=== PATIENT | female | born 1955 | race Caucasian/White ===

== ENCOUNTER 2016-09-20 17:52 | Inpatient (IN) ==
[2016-09-20 19:03] LABS: Basophils # (Auto) 0.2 K/mcL (0.0-0.3); Basophils % (Auto) 0.6 % (0.0-2.0); Eosinophils # (Auto) 0.4 K/mcL (0.0-0.7); Eosinophils % (Auto) 1.5 % (0.0-7.0); Granulocytes % (Auto) 88.7 % (38.0-78.0); Lymphocytes # (Auto) 0.8 K/mcL (1.5-4.8); Lymphocytes % (Auto) 2.9 % (15.5-49.0); Mean Cell Volume 88.7 fL (80.0-100.0); Mean Corpuscular HGB Conc 31.8 g/dL (31.0-36.0); Mean Corpuscular Hemoglobin 28.2 pg (26.0-34.0); Monocytes # (Auto) 1.6 K/mcL (0.1-0.9); Monocytes % (Auto) 6.3 % (1.0-12.0); Platelet Count 364 K/mcL (140-440); RBC 4.34 M/mcL (4.00-5.20); Red Cell Distribution Width 14.1 % (11.5-14.5)
[2016-09-20 19:26] LABS: Appearance,Urine HAZY; Bacteria,Urine 0 /hpf (0); Bilirubin,Urine NEG (NEG); Color,Urine YELLOW; Glucose,Urine (UA) NEGATIVE (NEG); Leukocyte Esterase,Urine 75 /uL (NEG); Mucus,Urine FEW /hpf (0); Nitrate,Urine NEG (NEG); Protein,Urine NEG (NEG); Urine Blood NEG mg/dL (<0.03); Urine Hyaline Cast 29 /lpf (0-2); Urine RBC 1 /hpf (0-1); Urine Squamous Epithelial Cell 7 /hpf (0-4); Urine Transitional Epi Cells 2 /hpf (0-2); Urine WBC 6 /hpf (0-4); Urobilinogen,Urine NEG (NEG)
[2016-09-20 19:38] LABS: ALT/SGPT 22 U/l (0-40); Albumin 4.2 gm/dL (3.2-5.2); Albumin/Globulin Ratio 1.6 (1.0-2.3); Alkaline Phosphatase 73 U/L (39-117); Blood Urea Nitrogen 42 mg/dl (6-20)
[2016-09-20] MEDS ORDERED: FUROSEMIDE 40 MG/4 ML VIAL IV ONE (19:39)
[2016-09-20] MEDS ORDERED: INSULIN REGULAR, HUMAN 1 UNIT/0.01 ML UNIT IV ONE (19:39)
[2016-09-20] MEDS ORDERED: DEXTROSE 50% 50 ML VIAL IV ONE (19:39)
[2016-09-20] MEDS ORDERED: CALCIUM GLUCONATE 13.95 MEQ in DEXTROSE 5% IN WATER 50 ML IV ONE (19:39)
[2016-09-20] MEDS ORDERED: SODIUM POLYSTYRENE SULFONATE 15 GM/60 ML SUSPENSION PO ONE (19:40)
--- NOTE | 2016-09-20 19:49 | Emergency Department Note ---
Weakness HPI - General Chief complaint: Weakness Stated complaint: weakness Time Seen by Provider: 09/20/16 18:08 Source: EMS Mode of arrival: EMS Limitations: no limitations - History of Present Illness HPI Narrative: 61-year-old female states that she was seen at [facility] one week ago after a fall in the bathroom. Was diagnosed with 3-5 metatarsal fractures put in a splint. A contusion on the dorsum of the foot and mouth. The come to visit her at home and have advised consideration for long-term care.. Patient states she's been too weak to get up since her fracture 1 week ago. She has a contusion on the dorsum of the foot, raised hematoma - Related Data Allergies Allergy/AdvReac Type Severity Reaction Status Date / Time Penicillins Allergy Unknown Verified 09/20/16 17:59 Review of Systems All systems ED: reviewed and negative except as stated. Constitutional: Denies: fever Cardiovascular: Denies: chest pain Respiratory: Denies: cough Gastrointestinal: Denies: abdominal pain Genitourinary: Denies: urgency Musculoskeletal: Denies: back pain Integumentary: Reports: other (Meet dorsum of left foot). Denies: rash Neurological: Denies: headache Psychiatric: Denies: anxiety Endocrine: Reports: as per HPI, fatigue Past Medical History - Past Medical History Medical history: Reports: CHF, COPD Family history: Reports: CAD/[place] (father age 62 mi) - Social History smoking status: Former smoker Packyears: 100 Alcohol use: Reports: Heavy (in past 12 beer, quit 5 y ago) Drug use: Reports: none Physical Exam - General Limitations: no limitations General appearance: alert - Head Head exam: atraumatic, normocephalic - Eye Eye exam: Present: normal appearance, PERRL - ENT ENT exam: normal exam, normal oropharynx - Neck Neck exam: Present: normal inspection, full ROM - Chest Chest inspection: Present: normal inspection, symmetric chest wall rise - Respiratory Respiratory exam: Present: normal lung sounds bilaterally, respiratory distress. Absent: wheezes - Cardiovascular Cardiovascular exam: Present: regular rate, normal rhythm. Absent: bradycardia , tachycardia - Abdominal Exam Abdominal exam: Present: soft. Absent: distention, tenderness, guarding, rebound - Extremities Exam Extremities exam: Present: normal inspection, full ROM. Absent: tenderness - Back Exam Back exam: Present: normal inspection, full ROM. Absent: tenderness - Neurological Exam Neurological exam: Present: alert, oriented X3. Absent: CN II-XII intact - Psychiatric Psychiatric exam: Present: normal affect, normal mood. Absent: depressed - Skin Skin exam: Present: warm, dry, other (hematoma on dorsum of left foot) Course Vital Signs Temperature 99.0 F 09/20/16 17:54 Pulse Rate 94 H 09/20/16 17:54 Respiratory Rate 22 09/20/16 17:54 Pulse Oximetry (%) 99 09/20/16 17:54 Temperature 99.0 F 09/20/16 17:54 Pulse Rate 90 09/20/16 20:00 Respiratory Rate 22 09/20/16 17:54 Blood Pressure 94/75 09/20/16 20:00 Pulse Oximetry (%) 96 09/20/16 20:00 Weakness - MDM Narrative Medical decision making narrative: wbc is elevated at 26,000 ua only 6 wbc, bun42, cr 17 potassium is 6.4 has hematoma of r foot., blood culture drawn and lactic ordered hyperkalemic protocol ordered. vancomycin started 1 gm. a central line was put in by anesthesia patient has very poor veins. Dr Brody contacted and will consult, Dr Fontenot will admitt. - Lab Data Result diagrams: 09/20/16 18:38 09/20/16 18:38 Lab Results 09/20/16 09/20/16 09/20/16 Range/Units 18:37 18:38 18:38 WBC 26.0 H (4.5-11.0) K/mcL RBC 4.34 (4.00-5.20) M/mcL Hgb 12.3 (12.0-15.0) g/dL Hct 38.5 (36.0-48.0) % MCV 88.7 (80.0-100.0) fL MCH 28.2 (26.0-34.0) pg MCHC 31.8 (31.0-36.0) g/dL RDW 14.1 (11.5-14.5) % Plt Count 364 (140-440) K/mcL MPV 8.1 (7.4-10.4) fL Gran % 88.7 H (38.0-78.0) % Lymph % (Auto) 2.9 L (15.5-49.0) % [place] % (Auto) 6.3 (1.0-12.0) % Eos % (Auto) 1.5 (0.0-7.0) % Baso % (Auto) 0.6 (0.0-2.0) % Gran # 23.1 H (1.8-8.0) K/mcL Lymph # 0.8 L (1.5-4.8) K/mcL [place] # 1.6 H (0.1-0.9) K/mcL Eos # 0.4 (0.0-0.7) K/mcL Baso # 0.2 (0.0-0.3) K/mcL Total Counted Seg Neutrophils % (38-78) % Band Neutrophils % Lymphocytes % (15-49) % Monocytes % (Manual) (1-9) % Platelet Estimate (NORMAL) RBC Morphology (NORMAL) VBG Lactic Acid (0.5-2.2) mmol/L Sodium 126 L (133-145) mmol/L Potassium 6.4 H* (3.3-5.1) mmol/L Chloride 81 L (96-108) mmol/L Carbon Dioxide 31 H (22-30) mmol/L Anion Gap 14.0 (8-16) BUN 42 H (6-20) mg/dl Creatinine 1.7 H (0.6-1.1) mg/dl GFR Calculation 32 Glucose 92 (70-105) mg/dL Calcium 10.2 (8.6-10.4) mg/dl Total Bilirubin 0.2 (0.0-1.0) mg/dL AST 25 (0-37) U/l ALT 22 (0-40) U/l Alkaline Phosphatase 73 (39-117) U/L Total Protein 6.9 (5.9-8.4) gm/dL Albumin 4.2 (3.2-5.2) gm/dL Globulin 2.7 (2.2-3.7) gm/dL Albumin/Globulin Ratio 1.6 (1.0-2.3) Urine Color Yellow Urine Appearance Hazy Urine pH 5.0 (5.0-9.0) Ur Specific [place] 1.010 (1.000-1.035) Urine Protein Neg (NEG) mg/dL Urine Glucose (UA) Negative (NEG) mg/dL Urine Ketones Neg (NEG) mg/dL Urine Occult Blood Neg (<0.03) mg/dL Urine Nitrate Neg (NEG) Urine Bilirubin Neg (NEG) mg/dL Urine Urobilinogen Neg (NEG) mg/dL Ur Leukocyte Esterase 75 A (NEG) /uL Urine RBC 1 (0-1) /hpf Urine WBC 6 H (0-4) /hpf Ur Squamous Epith Cells 7 H (0-4) /hpf Ur Transition Epith Cell 2 (0-2) /hpf Urine Bacteria 0 (0) /hpf Hyaline Casts 29 H (0-2) /lpf Urine Mucus Few (0) /hpf Ur Culture Indicated? No 09/20/16 09/20/16 Range/Units 18:38 19:25 WBC (4.5-11.0) K/mcL RBC (4.00-5.20) M/mcL Hgb (12.0-15.0) g/dL Hct (36.0-48.0) % MCV (80.0-100.0) fL MCH (26.0-34.0) pg MCHC (31.0-36.0) g/dL RDW (11.5-14.5) % Plt Count (140-440) K/mcL MPV (7.4-10.4) fL Gran % (38.0-78.0) % Lymph % (Auto) (15.5-49.0) % [place] % (Auto) (1.0-12.0) % Eos % (Auto) (0.0-7.0) % Baso % (Auto) (0.0-2.0) % Gran # (1.8-8.0) K/mcL Lymph # (1.5-4.8) K/mcL [place] # (0.1-0.9) K/mcL Eos # (0.0-0.7) K/mcL Baso # (0.0-0.3) K/mcL Total Counted 100 Seg Neutrophils % 90 H (38-78) % Band Neutrophils % Not Reportable Lymphocytes % 1 L (15-49) % Monocytes % (Manual) 9 (1-9) % Platelet Estimate Normal (NORMAL) RBC Morphology Normal (NORMAL) VBG Lactic Acid 1.5 (0.5-2.2) mmol/L Sodium (133-145) mmol/L Potassium (3.3-5.1) mmol/L Chloride (96-108) mmol/L Carbon Dioxide (22-30) mmol/L Anion Gap (8-16) BUN (6-20) mg/dl Creatinine (0.6-1.1) mg/dl GFR Calculation Glucose (70-105) mg/dL Calcium (8.6-10.4) mg/dl Total Bilirubin (0.0-1.0) mg/dL AST (0-37) U/l ALT (0-40) U/l Alkaline Phosphatase (39-117) U/L Total Protein (5.9-8.4) gm/dL Albumin (3.2-5.2) gm/dL Globulin (2.2-3.7) gm/dL Albumin/Globulin Ratio (1.0-2.3) Urine Color Urine Appearance Urine pH (5.0-9.0) Ur Specific [place] (1.000-1.035) Urine Protein (NEG) mg/dL Urine Glucose (UA) (NEG) mg/dL Urine Ketones (NEG) mg/dL Urine Occult Blood (<0.03) mg/dL Urine Nitrate (NEG) Urine Bilirubin (NEG) mg/dL Urine Urobilinogen (NEG) mg/dL Ur Leukocyte Esterase (NEG) /uL Urine RBC (0-1) /hpf Urine WBC (0-4) /hpf Ur Squamous Epith Cells (0-4) /hpf Ur Transition Epith Cell (0-2) /hpf Urine Bacteria (0) /hpf Hyaline Casts (0-2) /lpf Urine Mucus (0) /hpf Ur Culture Indicated? Disposition Clinical Impression: Renal failure, Hyperkalemia, Leukocytosis Disposition: Xfer As Inpt ([facility]) Condition: Undetermined Referrals: Rosie Bledsoe ARNP [Primary Care Provider] - Time of Disposition: 21:31
[2016-09-20 19:54] LABS: Lymphocytes % 1 % (15-49); Monocytes % (Manual) 9 % (1-9); Platelet Estimate NORMAL (NORMAL); RBC Morphology NORMAL (NORMAL); Segmented Neutrophils % 90 % (38-78)
[2016-09-20] MEDS ORDERED: DEXTROSE 50% 50 ML SYRINGE IV ONE ×2 (19:57)
[2016-09-20] MEDS ORDERED: ALBUTEROL SULFATE 5 MG/ML NEB SOLUTION BOTTLE NEB ONE (19:59)
--- NOTE | 2016-09-20 20:14 | XRay Report ---
CLINICAL INFORMATION: Chest pain TECHNIQUE: AP portable semiupright chest x-ray COMPARISON: Previous chest x-rays dated 09/11/2016, 03/20/2016, 11/22/2015 FINDINGS: Mild linear densities left lung base consistent with atelectasis. Lungs are otherwise negative. No focal consolidation. No parenchymal mass. Heart size and vascularity are normal. No pulmonary congestion. No pulmonary edema. There are changes from previous thoracic vertebral body augmentations No significant interval change IMPRESSION: 1. Mild left basilar atelectasis 2. Otherwise negative examination. Interpreted and Authenticated by: Matias Iqbal 09/20/16
[2016-09-20] MEDS ORDERED: VANCOMYCIN 1,000 MG in 0.9 % SODIUM CHLORIDE 250 ML IV ONE (20:48)
--- NOTE | 2016-09-20 21:26 | Procedure Note ---
Procedures - Central Line Placement Right IJ Consent obtained: verbal consent, written consent Time out performed: Yes Patient placed on monitor/pulse ox: Yes MD prep: mask, sterile gown, sterile gloves, cap Central line prep: 2% Chlorhexidine scrub, large sterile drapes applied, proper hand hygiene Local anesthesia used: lidocaine 1% Amount of anesthesia used (mls): 5 Ultrasound used for placement: Yes Central line lumen inserted: quad, 16 cm Post procedure: sutured in place, good blood return, all ports aspirated, flushed, capped, sterile dressing applied Post procedure x-ray: tip of catheter in good position Patient tolerated procedure: well, no complications Complications: none
--- NOTE | 2016-09-20 21:47 | XRay Report ---
CLINICAL INFORMATION: Right central venous catheter placement TECHNIQUE: AP portable chest x-ray COMPARISON: Previous examination dated 09/20/2016 FINDINGS: Right central venous catheter with its tip in appropriate position for superior vena cava. No pneumothorax. No acute or focal infiltrate. No interval change IMPRESSION: 1. Right central venous catheter in appropriate position for superior vena cava 2. No pneumothorax Interpreted and Authenticated by: Matias Iqbal 09/20/16
[2016-09-20] MEDS ORDERED: LIDOCAINE JEL 2% 1 TUBE 30GM TOPICAL ONE (21:50)
[2016-09-20] MEDS ORDERED: LEVOFLOXACIN 750 MG/150 ML BAG IV SCH (22:57)
[2016-09-20] MEDS ORDERED: NOREPINEPHRINE BITARTRATE 16 MG in 0.9 % SODIUM CHLORIDE 234 ML IV SCH (22:57)
[2016-09-20] MEDS ORDERED: ONDANSETRON 4 MG/2 ML VIAL IV PRN (22:57)
[2016-09-20] MEDS ORDERED: ACETAMINOPHEN 325 MG TABLET PO PRN (22:57)
[2016-09-20] MEDS ORDERED: VANCOMYCIN PER PHARMACY IV ONE (22:57)
[2016-09-20] MEDS: 0.9 % SODIUM CHLORIDE 10 ML SYRINGE IV SCH (23:26)
[2016-09-20] MEDS ORDERED: LEVOFLOXACIN 750 MG/150 ML BAG IV ONE (23:30)
[2016-09-21] MEDS: PIPERACILLIN SODIUM/TAZOBACTAM 3.375 GM in DEXTROSE 5% IN WATER 50 ML IV SCH ×2 (00:10→05:05)
[2016-09-21] MEDS: 0.9 % SODIUM CHLORIDE 1,000 ML IV SCH ×5 (00:10→23:34)
[2016-09-21] MEDS: VASOPRESSIN 20 UNIT in DEXTROSE 5% IN WATER 99 ML IV SCH (04:36)
[2016-09-21] MEDS: 0.9 % SODIUM CHLORIDE 10 ML SYRINGE IV SCH ×3 (05:41→23:36)
[2016-09-21 05:51] LABS: Mean Cell Volume 89.3 fL (80.0-100.0); Mean Corpuscular HGB Conc 31.9 g/dL (31.0-36.0); Mean Corpuscular Hemoglobin 28.5 pg (26.0-34.0); Platelet Count 310 K/mcL (140-440); RBC 3.51 M/mcL (4.00-5.20); Red Cell Distribution Width 14.4 % (11.5-14.5)
[2016-09-21] MEDS ORDERED: 0.9 % SODIUM CHLORIDE 10 ML SYRINGE IV SCH (06:00)
[2016-09-21 06:41] LABS: ALT/SGPT 18 U/l (0-40); Albumin 3.4 gm/dL (3.2-5.2); Albumin/Globulin Ratio 1.7 (1.0-2.3); Alkaline Phosphatase 57 U/L (39-117); Bilirubin,Direct < 0.2 mg/dL (0.0-0.3); Blood Urea Nitrogen 37 mg/dl (6-20); Gamma Glutamyl Transpeptidase 30 U/L (5-36); Magnesium 1.7 mg/dL (1.6-2.5); Phosphorous 3.7 mg/dL (2.7-4.5); Uric Acid 10.4 mg/dL (2.5-8.0)
[2016-09-21] MEDS ORDERED: VANCOMYCIN PER PHARMACY IV SCH (07:15)
--- NOTE | 2016-09-21 07:20 | Nephrology Consult Note ---
History of Present Illness - Reason for Consult Patient information: Note initiated : 09/21/16 at 7:18 am Service Date, if different from initiated Date: [] Patient: Shiela Ceballos 61 y/o F admitted on 09/20/16 for weakness. Chief Complaint: [] Consult date: 09/21/16 acute renal failure Requesting physician: Cain Son - Chief Complaint weakness - History of Present Illness Pt is a 61 yo female with hx of HTN, COPD, Osteoporosis was admitted to ICU last night with weakness, found to be hyperkalemic with K 6.4 ( started on hyperkalemia protocol in ED) , DOMINIQUE with sCr 1.7 and sepsis with hypotension leukocytosis ( WBC 26,000) and altered mental status. Pt had a recent fall with fracture of Left third to fifth metatarsal subsequent hematoma ( with a blood filled blister) on dorsum of left foot. Patient lives in [facility] along with her and has not been able to take care of herself due to increasing weakness and pain. Pt has been started on IVFs and empiric antibiotics Cefepime and Vancomycin. Her sCr is down to 1.4 and Potassium 4.0 She is more alert and responsive this AM and able to answer Q's. Pt does state being feverish at home x 1 week ( temps not checked) , with poor po intake. She denies any Vomiting/diarrhea. She is on diuretics - furosemide and spironolactone Appreciate Dr Son's help in managing this patient Review of Systems All systems PM: reviewed and no additional remarkable complaints except as stated (as noted in HPI) Past History Past medical history: CHF COPD CAD HTN Osteoporosis Past family history: NM in father at age 62 CAD in family Past social history: , lives with her Ex smoker Prior heavy alcohol abuse - 12 beer per day no hx of illicit drug use Medications and Allergies Home Medications Medication Instructions Recorded Confirmed Type Albuterol Sulfate [Proair Hfa] 2 puff INH Q4HP PRN 09/20/16 09/21/16 History Azithromycin [Zithromax] 250 mg PO DAILY 09/20/16 09/20/16 History Budesonide [Pulmicort] 0.5 mg NEB BID 09/20/16 09/21/16 History Diltiazem [Cardizem Cd] 120 mg PO DAILY 09/20/16 09/20/16 History Docusate Sodium [Stool Softener] 250 mg PO DAILY 09/20/16 09/20/16 History Fluconazole [Diflucan] 100 mg PO DAILY 09/20/16 09/20/16 History Fluticasone Propionate [Flonase] 2 spray NS DAILY 09/20/16 09/20/16 History Furosemide [Lasix] 40 mg PO QNOON 09/20/16 09/20/16 History Furosemide [Lasix] 80 mg PO DAILY 09/20/16 09/20/16 History Ipratropium/Albuterol [Duoneb] 3 ml NEB Q4HP PRN 09/20/16 09/20/16 History Linaclotide [Linzess] 290 mcg PO DAILY 09/20/16 09/20/16 History Pantoprazole Sodium 40 mg PO DAILY 09/20/16 09/20/16 History Potassium Chloride [Kdur] 20 meq PO DAILY 09/20/16 09/20/16 History Ranitidine HCl [Acid Grain Manager] 150 mg PO DAILY 09/20/16 09/20/16 History Spironolactone [Aldactone] 12.5 mg PO DAILY 09/20/16 09/20/16 History Tiotropium Delta [Spiriva 2 puff INH DAILY 09/20/16 09/20/16 History Respimat] clonazePAM [Clonazepam] 0.5 - 1 mg PO BID 09/20/16 09/20/16 History predniSONE [Prednisone] 10 mg PO DAILY 09/20/16 09/20/16 History QUEtiapine [SEROquel] 12.5 mg PO BID 09/21/16 09/21/16 History oxyCODONE HCL [Roxicodone] 20 mg PO Q4-6HP PRN 09/21/16 09/21/16 History Allergies Allergy/AdvReac Type Severity Reaction Status Date / Time Penicillins Allergy Severe Anaphylaxis Verified 09/21/16 07:35 celecoxib [From Celebrex] Allergy Verified 09/20/16 22:04 Exam - Vital Signs Vital signs: Temp Pulse Resp BP Pulse Ox 97.9 F 90 14 93/71 96 09/21/16 04:00 09/21/16 05:58 09/21/16 05:24 09/21/16 05:58 09/21/16 05:58 - General Appearance General appearance: frail EENT: mucous membranes dry Neck: supple Respiratory: clear Cardiology: no edema, regular rate, regular rhythm, normal S1, normal S2 Gastrointestinal: normoactive bowel sounds, no tenderness, guarding Integumentary: erythema (on lower ext, chronic skin changes) Neurologic: no focal deficit, no asterixis, alert and oriented x3 Musculoskeletal: deformities (with edema/erythema/blood filled blister on dorsum of left foot, chronic skin changes) Psychiatric: mood/affect appropriate Results - Lab Results 09/21/16 04:05 09/21/16 04:05 Most recent lab results Calcium 9.2 mg/dl (8.6-10.4) 09/21/16 04:05 Phosphorus 3.7 mg/dL (2.7-4.5) 09/21/16 04:05 Magnesium 1.7 mg/dL (1.6-2.5) 09/21/16 04:05 Assessment and Plan (1) DOMINIQUE (acute kidney injury) Likely a combination of pre renal DOMINIQUE ( por po intake + diuretics - furosemide and spironolactone) + ATN 2/2 sepsis ( unknown source) ? infected hematoma continue NS for now empiric antibiotics monitor renal function dose meds for eGFR 40 ml/min Avoid nephrotoxins Aim to keep SBPs between 110-120 monitor renal function Status: Acute (2) Leukocytosis 2/2 infection, dehydrated state contributing continue empiric antibiotics Status: Acute (3) Septic shock infection - unknown source Empiric antibiotics for now IVFs f/u cultures pressors to keep SBP > 110-120 Status: Acute (4) Hyponatremia 2/2 poor intake; Na slightly improved to 131 with normal saline continue IVFs and monitor Status: Acute (5) Nephrolithiasis non obstruction calculi as seen on renal u/s Status: Acute
[2016-09-21 07:35] LABS: Band Neutrophils % 3 % (0-10); Basophilic Stippling 1+ (NONE SEEN); Lymphocytes % 7 % (15-49); Monocytes % (Manual) 9 % (1-9); Myelocytes % 2 % (0-0); Platelet Estimate NORMAL (NORMAL); RBC Morphology ABNORMAL (NORMAL); Segmented Neutrophils % 79 % (38-78)
[2016-09-21] MEDS ORDERED: VASOPRESSIN 20 UNIT in DEXTROSE 5% IN WATER 99 ML IV PRN (07:36)
[2016-09-21] MEDS ORDERED: NOREPINEPHRINE BITARTRATE 16 MG in 0.9 % SODIUM CHLORIDE 234 ML IV PRN (07:36)
[2016-09-21] MEDS ORDERED: IPRATROPIUM/ALBUTEROL 3 ML AMPUL.NEB NEB ONE (08:16)
[2016-09-21] MEDS: IPRATROPIUM/ALBUTEROL 3 ML AMPUL.NEB NEB PRN (08:24)
[2016-09-21] MEDS: BUDESONIDE 1 PUFF INHALER INH SCH ×2 (08:24→21:19)
[2016-09-21] MEDS ORDERED: IPRATROPIUM/ALBUTEROL 3 ML AMPUL.NEB NEB PRN (08:28)
[2016-09-21] MEDS ORDERED: oxyCODONE 20 MG TAB.ER.12H PO SCH (08:30)
[2016-09-21] MEDS: oxyCODONE HCL 5 MG TABLET PO PRN ×3 (08:30→19:50)
--- NOTE | 2016-09-21 08:45 | Ultrasound Report ---
CLINICAL INFORMATION: Renal failure. Possible obstructive uropathy TECHNIQUE: Grayscale and color flow spectral imaging COMPARISON: None. FINDINGS: Right kidney measures 8.8 x 5.8 x 4.7 cm. There are two renal cysts. There is a superior pole cyst measuring 1.3 cm maximally. There is a lower pole cyst measuring 1.0 cm maximally. There is a probable 6 mm nonobstructing right mid pole stone. There is no hydronephrosis. No solid renal mass. Left kidney measures 7.8 x 4.6 x 5.1 cm. There is an exophytic superior pole cyst. This measures 4.1 x 4.0 x 3.8 cm. No solid mass. There is a probable 6 mm nonobstructing mid pole calculus. There is no hydronephrosis. Catheter is in place and urinary bladder is not evaluated IMPRESSION: 1. Bilateral simple cysts 2. Bilateral nonobstructing calculi 3. No hydronephrosis Interpreted and Authenticated by: Matias Iqbal 09/21/16
[2016-09-21] MEDS ORDERED: TIOTROPIUM BROMIDE 18 MCG INHALANT INH SCH (09:00)
[2016-09-21] MEDS ORDERED: DILTIAZEM 120 MG CAP.XL.24H PO SCH (09:00)
[2016-09-21] MEDS: CEFEPIME 2 GM in DEXTROSE 5% IN WATER 50 ML IV SCH ×2 (09:12→21:18)
[2016-09-21] MEDS: NOREPINEPHRINE BITARTRATE 16 MG in 0.9 % SODIUM CHLORIDE 234 ML IV SCH (09:31)
[2016-09-21] MEDS: 0.9 % SODIUM CHLORIDE 250 ML IV SCH (09:40)
--- NOTE | 2016-09-21 10:26 | History and Physical Report ---
DATE OF ADMISSION: 09/20/2016 PRIMARY CARE PROVIDER: TO Phipps REASON FOR ADMISSION: Fall, weakness, and dizziness. HISTORY OF CHIEF COMPLAINT: The patient is a 61-year-old who lives with her , Masoud at [place]. A week ago she fell after a brief spell of dizziness, sustaining injury on her left foot. She was evaluated in the ER and subsequently discharged after the leg was wrapped. However, over the last one week, the patient has been getting progressively weak, febrile, unable to ambulate, more somnolent, lethargic. She was evaluated by orthopedics and recommended Orthopedic boot in light of metatarsal fracture , however due to worsening weakness she comes to [facility] where initial workup was significant for white count 26,000 along with acute renal failure, potassium 6.4. Nephrology was emergently consulted and patient received first dose of antibiotics after getting blood cultures drawn. Hospitalist Service was consulted in light of severe sepsis, acute renal failure, hyperkalemia, and critical state. At the time of examination, the patient is very lethargic. Minimal history could be obtained. No family members were present. She, however, denies abdominal pain, chest pain. She endorses dizziness but no glandular swelling, joint pain, diarrhea, dysuria, headache, or photophobia. She further denies shortness of breath, but she is on 4 liters of oxygen. REVIEW OF SYSTEMS: Ten-point review of system was performed and negative except the ones discussed above. PAST MEDICAL HISTORY: 1. History of coronary artery disease. 2. Hypertension. 3. Degenerative joint disease. 4. Lower extremity lymphedema, stasis changes. 5. COPD. CURRENT MEDICATIONS: 1. Linzess 290 mg daily. 2. Oxycodone 20 mg q.4-6h. 3. Diltiazem 120 mg. 4. Azithromycin 250 mg. 5. Pantoprazole 40 mg. 6. Spironolactone 12.5 mg. 7. Furosemide 80 mg a.m., 40 mg noon. 8. Potassium 20 mg. 9. Fluconazole 100 mg. 10. Prednisone 10 mg. 11. Clonazepam 0.5 to 1 b.i.d. 12. Spiriva inhaled daily. 13. Docusate as needed. 14. Ranitidine 150 mg. 15. Fluticasone inhaled as needed. 16. Budesonide 0.5 neb daily. ALLERGIES: Known to: 1. PENICILLIN 2. CELECOXIB. SOCIAL HISTORY: The patient lives in [place]. She is FULL CODE. She is to her , Masoud. She sees primary care physician, TO Phipps. No history of alcoholism. FAMILY HISTORY: None significant to presenting history. PHYSICAL EXAMINATION: GENERAL: The patient is very lethargic, fatigued, slumped up in the bed, no signs of respiratory distress. BMI 20, height 5 feet 4 inches. VITAL SIGNS: Blood pressure 82/66, respiratory rate 16, temperature 97.9, pulse 100, sats 93% on 3 liters of oxygen. HEENT: Pupils symmetric, myotic. Oral cavity is dry. No ear or nose discharge. Head is normocephalic and atraumatic. NECK: No lymphadenopathy. CHEST: S1, S2, tachycardia. ESM grade 1. Diminished breath sounds at bases. ABDOMEN: Soft and nontender. LOWER EXTREMITIES: Bilateral significant lower extremity stasis changes along with lymphedema, excoriation left dorsum large 5 x 5 cm raised blister, likely hematoma. Patient also complains of vaginal discharge and itching. PSYCHIATRIC: Lethargic, fatigued, no agitation or hallucination. NEURO: Moving all 4 extremities; however, higher function could not be checked. LABS AND IMAGING: White count 26,000, hemoglobin 12.3, neutrophils _64, segs 90%, ESR 29. Lactic acid 1.5, sodium 126, potassium 6.4, creatinine 1.7, and BUN 42. Procalcitonin 0.12. CRP 19. UA 6 WBCs. ASSESSMENT AND PLAN: A 61-year-old admitted with severe sepsis, hypotension and acute renal failure. 1. Severe sepsis. initiated broad-spectrum antibiotics after cultures have been drawn, aggressive source evaluation. Continue close monitoring and admit to ICU. WBC [id number]. 2. Hyperkalemia 6.4 managed per hyperkalemia protocol. Nephrology consulted. 3. Acute renal failure, again secondary to sepsis. Nephrology consulted. Cr 1.7. 4. Left foot 3-5 metatarsal fracture. Continue pain management, Orthopedics consultation. 5. Other prior medical issues, including: a. History of hypertension. At this time, medications will be held. The patient has severe sepsis and all antihypertensives at this time will be on hold. b. History of COPD. Continue bronchodilators, steroids. c. Degenerative joint disease. Continue pain medication as needed. Patient will be admitted to ICU in light of critical hyperkalemia, renal failure, sepsis with end organ dysfunction. AA:holly Job ID: [id number] Doc ID: [id number] [facility]
--- NOTE | 2016-09-21 10:42 | Internal Med Progress Note ---
Medical - PN: Subj Patient information: Note initiated : 09/21/16 at 10:29 am Service Date, if different from initiated Date: [] Patient: Shiela Ceballos 61 y/o F admitted on 09/20/16 for weakness. Chief Complaint: [] Interval history: 09/20- patient admitted critically ill with weakness hyperkalemia,hypotension sepsis and acute renal failure along with mental status change. Recent fall sustaining Left third to fifth metatarsal injury/fracture and subsequent hematoma dorsum of left foot. Patient lives in [facility] along with her . hasn't been able to take care of herself due to increasing weakness and pain. Initial workup in the ER revealed potassium 6.4 along with creatinine 1.7 and white count 26,000. Patient was started on hyperkalemia protocol. 09/21-more lucid and alert and responsive. Creatinine 1.4. Potassium down to 4. White count 27,000. No clear source. surgery/Orthopedics consulted for Lt foot hematoma. on broad antibiotic coverage cefepime,levaquin and vancomycin. No overnight fever chills nausea vomiting. on 3 L oxygen. nephrology recommends systolics around 110. continue vasopressors. History of underlying COPD. Resume home meds except for antihypertensives - Constitutional Vitals: Vital Signs Temp Pulse Resp BP Pulse Ox 99.7 F H 102 H 10 L 103/87 97 09/21/16 07:00 09/21/16 08:26 09/21/16 08:26 09/21/16 08:00 09/21/16 08:25 Period Temp Pulse Resp BP Sys/[place] Pulse Ox Last 24 Hr 97.9 F-99.7 F 90-105 10-20 82-112/60-99 91-97 Intake and Output 09/20/16 09/21/16 09/21/16 21:59 05:59 13:59 Intake Total 1250 / 1330 795 / 795 Output Total 850 / 850 285 / 285 Balance 400 / 480 510 / 510 Weight 118 lb 3 oz Intake & Output: Intake & Output 09/20/16 09/21/16 09/21/16 21:59 05:59 13:59 Intake Total 1250 / 1330 795 / 795 Output Total 850 / 850 285 / 285 Balance 400 / 480 510 / 510 Weight 118 lb 3 oz Intake: IV 1250 / 1250 795 / 795 Sodium Chloride 0.9% 1, 1000 / 1000 795 / 795 000 ml @ 100 mls/hr IV . Q10H [facility] Rx#:[id number] Vancomycin 1,000 mg In 250 / 250 Sodium Chloride 0.9% 250 ml @ 250 mls/hr IV ONCE ONE Rx#:[id number] Output: Urine Catheter Amount 850 / 850 285 / 285 General appearance: cooperative, no acute distress Exam: lethargic weak and fatigued nonlabored breathing Bilateral lower extremity lymphedema/excoriation/venous stasis changes/ dermatitis Based hematoma blister 4 x 4 centimeter dorsum of Lt foot Medical - PN: Obj Da - Labs CBC & Chem 7: 09/22/16 04:10 09/22/16 04:10 Labs: Abnormal Lab Results 09/21/16 09/21/16 09/20/16 04:05 04:05 23:07 WBC 27.5 H RBC 3.51 L Hgb 10.0 L Hct 31.3 L Seg Neutrophils % 79 H Lymphocytes % 7 L Myelocytes % 2 H Basophilic Stippling 1+ A ESR Sodium 131 L Chloride 88 L Carbon Dioxide 31 H BUN 37 H Creatinine 1.4 H Uric Acid 10.4 H C-Reactive Protein 1.9 H Total Protein 5.4 L Globulin 2.0 L 09/20/16 23:07 WBC RBC Hgb Hct Seg Neutrophils % Lymphocytes % Myelocytes % Basophilic Stippling ESR 29 H Sodium Chloride Carbon Dioxide BUN Creatinine Uric Acid C-Reactive Protein Total Protein Globulin Meds: Medications Acetaminophen (Tylenol) 650 mg PO Q4-6HP PRN PRN Reason: PAIN/FEVER > 101 Albuterol Sulfate (Ventolin) 1 puff INH Q6HP PRN PRN Reason: Shortness Of Breath Albuterol/Ipratropium (Duoneb) 3 ml NEB Q4HP PRN PRN Reason: Shortness Of Breath Last Admin: 09/21/16 08:24 Dose: 3 ml Albuterol/Ipratropium (Duoneb) 3 ml NEB Q4HP PRN PRN Reason: Shortness Of Breath Budesonide (Pulmicort) 2 puff INH BID [facility] Last Admin: 09/21/16 08:24 Dose: Not Given Budesonide (Pulmicort) 0.5 mg NEB DAILY [facility] Clonazepam (Klonopin) 0.5 - 1 mg PO BID [facility] Diltiazem HCl (Cardizem Cd) 120 mg PO DAILY [facility] Docusate Sodium (Colace) 100 mg PO BID [facility] Famotidine (Pepcid) 20 mg PO DAILY [facility] Fluticasone Propionate (Flonase) 2 spray NS DAILY [facility] Furosemide (Lasix) 40 mg PO QNOON [facility] Heparin Sodium (Porcine) (Heparin) 5,000 unit SQ Q12 [facility] Sodium Chloride (Sodium Chloride 0.9%) 1,000 mls @ 0 mls/hr IV BOLUS [facility] PRN Reason: Wide Open Last Infusion: 09/21/16 01:48 Dose: Infused Sodium Chloride (Sodium Chloride 0.9%) 1,000 mls @ 100 mls/hr IV .Q10H [facility] Stop: 09/22/16 04:56 Last Admin: 09/21/16 09:18 Dose: 100 mls/hr Levofloxacin (Levaquin) 750 mg in 150 mls @ 100 mls/hr IV Q48H [facility] Vancomycin HCl 1,000 mg/ (Sodium Chloride) 250 mls @ 250 mls/hr IV Q24H [facility] Vasopressin 20 unit/ Dextrose 100 mls @ 12 mls/hr IV Q8HP PRN; Protocol; 0.04 UNIT/MIN PRN Reason: Hypotension Cefepime HCl 2 gm/ Dextrose 50 mls @ 100 mls/hr IV Q12H [facility] Last Admin: 09/21/16 09:12 Dose: 100 mls/hr Norepinephrine Bitartrate 16 (mg/ Sodium Chloride) 250 mls @ 9.37 mls/hr IV Q24H [facility]; 10 MCG/MIN PRN Reason: Protocol Last Admin: 09/21/16 09:31 Dose: 10 mcg/min, 9.37 mls/hr Ondansetron HCl (Zofran) 4 mg IV Q4-6HP PRN PRN Reason: Nausea And Vomiting Oxycodone HCl (Roxicodone) 20 mg PO Q4-6HP PRN PRN Reason: Pain Last Admin: 09/21/16 08:30 Dose: 20 mg Pantoprazole Sodium (Protonix) 40 mg PO QAMAC [facility] Linaclotide [Linzess (] 290 Mcg Cap) 1 dose PO DAILY [facility] Tiotropium [place] [ Spiriva Respimat] Inhaler 2 dose INH DAILY [facility] Potassium Ch[facility] ([facility]) [facility]) [facility] Senna/Docusate Sodium (Senna Plus Tablet) 1 tab PO HS [facility] Sodium Chloride (Saline Flush) 10 ml IV Q8 [facility] Last Admin: 09/21/16 05:41 Dose: 10 ml Sodium Chloride (Saline Flush) 10 ml IV UD PRN PRN Reason: meds and labs draws Tiotropium [place] (Spiriva) 18 mcg INH DAILY [facility] Last Admin: 09/21/16 08:25 Dose: Not Given Vancomycin HCl (Vancomycin Per Pharmacy) 1 order IV UD [facility] Medical - PN: A/P - Time Spent With Patient Total time spent is greater than 50% in coordination of care (as documented) at patient's floor/unit and/or counseling patient: Greater than 35 minutes (critical care time) (1) Septic shock Status: Acute Assessment and plan: * Septic shock-unclear etiology. Continue broad antibiotic coverage/pressors to keep map at goal. * Acute renal failure management nephrology. Creatinine improving to 1.4 * Hyperkalemia managed per nephrology. Status post hypokalemia protocol. Potassium 3.8 * Mental status change secondary to sepsis end organ dysfunction-clinically improving * Lt foot hematoma/blister-orthopedics/wound care consulted. * History of COPD continue bronchodilators steroids * Hypertension meds on hold in light of septic shock Plan * Broad antibiotic coverage * vasopressors to keep systolics over 110 * wound care /orthopedicsconsult * Pre-existing medical condition management as above Current Visit: Yes Medical - PN: Qual - VTE Deep Vein Thrombosis/Pulmonary Embolism Present on Admission: No
[2016-09-21] MEDS: clonazePAM 0.5 MG TABLET PO SCH ×3 (10:57→21:17)
[2016-09-21] MEDS: HEPARIN 5,000 UNIT/ML VIAL SQ SCH ×2 (10:57→21:18)
[2016-09-21] MEDS: FAMOTIDINE 20 MG TABLET PO SCH (10:57)
[2016-09-21] MEDS: predniSONE 10 MG TABLET PO SCH (10:59)
[2016-09-21] MEDS: PANTOPRAZOLE 40 MG TABLET PO SCH (11:00)
[2016-09-21] MEDS: POTASSIUM CHLORIDE 20 MEQ TABLET PO SCH (11:00)
[2016-09-21] MEDS: DOCUSATE SODIUM 100 MG CAPSULE PO SCH ×2 (11:00→21:17)
[2016-09-21] MEDS: FLUTICASONE PROPIONATE SPRAY.NAS NS SCH (11:01)
[2016-09-21] MEDS: BUDESONIDE 0.5 MG/2 ML AMPUL.NEB NEB SCH ×2 (11:01→11:40)
[2016-09-21] MEDS: VANCOMYCIN 1,000 MG in 0.9 % SODIUM CHLORIDE 250 ML IV SCH (11:02)
[2016-09-21] MEDS ORDERED: FUROSEMIDE 40 MG TABLET PO SCH (12:00)
--- NOTE | 2016-09-21 14:24 | Consultation ---
DATE OF CONSULTATION: 09/21/2016 CHIEF COMPLAINT: The patient is seen in consultation at the request of Dr. Son from the hospitalist service for a left foot injury. HISTORY OF PRESENT ILLNESS: The patient is a 61-year-old woman admitted to [facility] yesterday with findings of hyperkalemia, renal failure, sepsis and end organ dysfunction. On admission, the patient was noted to have an elevated white blood cell count of 26,000. She was in acute renal failure with a creatinine of 1.7. Etiology of her leukocytosis was uncertain; however, the patient has an injury to the left foot and consult to general surgery was made for evaluation of this. In talking with the patient, she reports that she fell last week on and injured her foot. She was seen in the Emergency Department at [facility], subsequently sent home. Four days later she reports that she was contacted by the hospital that she did have fractures in his foot and that she needed to go back to the hospital to nut picker a boot for the foot. The patient reports that she did develop swelling and pain in the area of the left foot. Currently, she is denying chills. She reports no other areas of injury from that fall except for a bruise on the left buttock. She does not have pain in that area or pain in any other area on her body. REVIEW OF SYSTEMS: CONSTITUTIONAL: Denies chills. CARDIOVASCULAR: Denies chest pain or pressure. GI: Reports no bowel movements for the past 4 days but has been passing gas. This is unusual for her bowel regimen as she normally passes stool every other day. She denies nausea or vomiting. She denies any abdominal pain. She reports her appetite has been decreased over the past few days. ALLERGIES: PENICILLIN AND CELECOXIB. PAST MEDICAL HISTORY: Coronary artery disease, hypertension, COPD on chronic prednisone therapy, degenerative joint disease, lower extremity lymphedema. MEDICATIONS: 1. Linzess. 2. Oxycodone. 3. Diltiazem. 4. Azithromycin. 5. Protonix. 6. Spironolactone. 7. Furosemide. 8. Potassium. 9. Fluconazole. 10. Prednisone, dose recently increased from 10 mg to 15 mg. 11. Clonazepam. 12. Spiriva. 13. Docusate. 14. Ranitidine. 15. Budesonide. SOCIAL HISTORY: The patient is . She sees Rosie Bledsoe, ARRNP as her primary care provider. PHYSICAL EXAMINATION: VITAL SIGNS: Temperature 98.5, pulse 95, respiratory rate 10-13, blood pressure 107/67 on 11 mcg of norepinephrine. PHYSICAL EXAMINATION: GENERAL: The patient is an elderly woman who appears older than her stated age. She has a very kyphotic spine, which holds her in a very hunched position. NEURO: She is alert and oriented to person, place and circumstance. CARDIOVASCULAR: Regular rhythm, tachycardic. CHEST: Breath sounds are clear in the upper montero and diminished at bases, probably due to poor expansion. ABDOMEN: Abdominal exam reveals mild tenderness to deep palpation in the left lower abdomen. No rebound tenderness. No voluntary or involuntary guarding. Abdomen feels soft. Distention is difficult to tell due to the hunched position of the patient, though she reports that it does not feel distended. EXTREMITIES: Peripheral edema present in the lower extremities at 2+ beginning at the knees bilaterally. The left lower extremity is slightly more edematous than the right. The patient states this is her baseline. The dorsum of the left foot, there is an area of significant swelling that appears associated with a blister that has formed a few days ago and has now started to rupture. There is ecchymotic staining of the deeper tissues beyond the epidermidis that was left off from the blister and there is tenderness on gentle palpation of this area. This is the foot where the patient did injure herself last week on . BACK: Skeletal examination of the patient's back reveals no pressure sores along the backside. She does have a small bruise on the left buttock but this is not represented of a deep tissue injury or pressure sore. This is a bruise that she has reported from falling. LABS AND STUDIES: CBC shows a white blood cell count of 27.5, hemoglobin 10, hematocrit 31.3 and platelets are 310. Serum chemistries show sodium of 130 and potassium 3.8, chloride 88, CO2 31, BUN 37, creatinine 1.4, glucose 83, calcium 9.2, GGT 30, AST 23, ALT 18, alkaline phosphatase 57, LDH 249. C-reactive protein from last night was elevated at 1.9, albumin 3.4, total protein 5.4. Urinalysis from admission showed 75 leukocyte esterase, 6 white blood cells, 7 epithelial cells, 29 hyaline casts, but this was not reflex to culture. Venous lactic acid from last night was 1.5. IMAGING STUDIES: Chest x-ray from yesterday shows no acute or focal infiltrate. There is a right central venous catheter that had been placed yesterday. I have also had them push over films and get the reports from the images from [facility] from from her evaluation of her left foot. She had 3 views done of the left ankle and views of the left foot done on 09/13/2016. Findings show osteopenia with significant soft tissue swelling over the ankle without obvious fracture. There are fractures of at least the 3rd through the fifth metatarsal present on the left foot. I have reviewed these images as well as the report. ASSESSMENT AND PLAN: 1. Left foot injury with metatarsal fractures. The injury was sustained 8 days ago. The patient has developed swelling and blister formation overlying the injury. The full depth of soft tissue injury is uncertain. The blister overlying the area has ruptured and is starting to drain, though the tissue beneath the port of the epidermis is still quite ecchymotic. Given the opening in the skin overlying an area of underlying fractures I recommended that orthopedic consultation be obtained for further evaluation and recommendations on management. 2. Leukocytosis of uncertain etiology. It is possible that the leukocytosis could be related to the foot injury. However, given that patient's bowel changes have been different recently I have recommended that abdominal films be obtained to rule out possibility of small-bowel obstruction or other intraabdominal findings that may not be evident on exam and could be masked by the presence of chronic use of steroids. Case was discussed with Dr. Son. He has contacted Dr. Dominguez in orthopedics for consultation at the left foot. KAREY:holly Job ID: [id number] Doc ID: [id number] Wendy Carey MD
--- NOTE | 2016-09-21 16:36 | XRay Report ---
CLINICAL INFORMATION: Change in bowel habits. Possible constipation. TECHNIQUE: Supine and upright abdomen COMPARISON: Previous chest x-ray dated 09/20/2016 FINDINGS: Prominent fecal material suggesting constipation. No dilated gas-filled small bowel. No evidence for mechanical small bowel obstruction. No pneumatosis. No biliary or portal venous gas. Upright abdomen demonstrates left lower lobe infiltrate which appears to be new since 09/20/2016. Findings are consistent with pneumonia. IMPRESSION: 1. Probable constipation. No mechanical small bowel obstruction. 2. Left basilar pulmonary parenchymal infiltrate consistent with pneumonia. Interpreted and Authenticated by: Matias Iqbal 09/21/16
[2016-09-21] MEDS: SENNOSIDES/DOCUSATE SODIUM 1 TAB TABLET PO SCH (21:17)
[2016-09-21] MEDS: ALBUTEROL SULFATE 1 PUFF INHALER INH PRN (22:14)
[2016-09-22] MEDS: 0.9 % SODIUM CHLORIDE 250 ML IV SCH ×5 (00:14→23:36)
[2016-09-22] MEDS: 0.9 % SODIUM CHLORIDE 1,000 ML IV SCH (00:32)
[2016-09-22] MEDS: oxyCODONE HCL 5 MG TABLET PO PRN ×6 (00:52→23:25)
[2016-09-22] MEDS: VASOPRESSIN 20 UNIT in DEXTROSE 5% IN WATER 99 ML IV SCH (01:20)
[2016-09-22] MEDS: IPRATROPIUM/ALBUTEROL 3 ML AMPUL.NEB NEB PRN ×3 (03:53→15:48)
[2016-09-22] MEDS: 0.9 % SODIUM CHLORIDE 10 ML SYRINGE IV SCH ×3 (05:45→21:19)
[2016-09-22] MEDS: ALBUTEROL SULFATE 1 PUFF INHALER INH PRN ×3 (06:30→18:59)
[2016-09-22 06:46] LABS: Mean Cell Volume 89.2 fL (80.0-100.0); Mean Corpuscular HGB Conc 31.8 g/dL (31.0-36.0); Mean Corpuscular Hemoglobin 28.3 pg (26.0-34.0); Platelet Count 293 K/mcL (140-440); RBC 3.36 M/mcL (4.00-5.20); Red Cell Distribution Width 14.4 % (11.5-14.5)
[2016-09-22] MEDS: PANTOPRAZOLE 40 MG TABLET PO SCH (07:26)
[2016-09-22 07:36] LABS: ALT/SGPT 16 U/l (0-40); Albumin/Globulin Ratio 1.5 (1.0-2.3); Alkaline Phosphatase 52 U/L (39-117); Bilirubin,Direct < 0.2 mg/dL (0.0-0.3); Blood Urea Nitrogen 19 mg/dl (6-20); Gamma Glutamyl Transpeptidase 26 U/L (5-36); Magnesium 1.5 mg/dL (1.6-2.5); Phosphorous 1.9 mg/dL (2.7-4.5)
[2016-09-22 08:00] LABS: Lymphocytes % 7 % (15-49); Monocytes % (Manual) 8 % (1-9); Platelet Estimate NORMAL (NORMAL); RBC Morphology NORMAL (NORMAL); Segmented Neutrophils % 85 % (38-78)
[2016-09-22] MEDS: predniSONE 10 MG TABLET PO SCH (08:13)
[2016-09-22] MEDS: POTASSIUM CHLORIDE 20 MEQ TABLET PO SCH (08:13)
[2016-09-22] MEDS ORDERED: POTASSIUM PHOSPHATE 20 MEQ in DEXTROSE 5% IN WATER 250 ML IV ONE ×2 (08:30→12:00)
--- NOTE | 2016-09-22 08:30 | Nephrology Progress Note ---
Subjective Patient information: Note initiated : 09/22/16 at 8:30 am Service Date, if different from initiated Date: [] Patient: Shiela Ceballos 61 y/o F admitted on 09/20/16 for Weakness/Renal Failure, Hyperkalemia, Leukocytosis. Chief Complaint: [] Principal diagnosis: weakness with DOMINIQUE and hyperkalemia Interval history: Pt doing well. Renal function now back to baseline of 0.8 with IV fluids. Pt is sitting in chair and has no complaints. Has been on empiric antibiotics, WBC trending down CXR with bibasilar PNA and pulm congestion, pt is off lasix Objective - Vital Signs Vital signs: Vital Signs Temp Pulse Pulse Resp BP BP Pulse Ox 09/22/16 05:59 92 H 92/66 95 09/22/16 05:00 92 H 110/75 94 09/22/16 04:15 92 H 16 09/22/16 04:00 98.2 F 94 H 16 113/78 92 09/22/16 03:00 92 H 112/58 96 09/22/16 02:00 96 H 112/74 94 09/22/16 01:00 95 H 110/75 94 09/22/16 00:00 100 H 125/84 94 09/21/16 23:00 99 H 116/63 94 09/21/16 22:16 78 18 93 09/21/16 22:15 82 20 09/21/16 22:00 97 H 103/73 93 09/21/16 21:00 103 H 112/65 91 09/21/16 20:00 98.9 F 100 H 23 114/71 93 09/21/16 19:00 92 H 133/87 96 09/21/16 18:00 133/81 94 09/21/16 16:15 99.1 F 112/83 93 09/21/16 15:00 99.0 F 16 111/75 96 09/21/16 14:00 99.0 F 20 124/83 96 09/21/16 13:30 114/75 95 09/21/16 13:00 125/66 95 09/21/16 12:40 96/57 91 09/21/16 12:30 100/68 92 09/21/16 12:25 92 09/21/16 12:15 102/71 92 09/21/16 12:10 110/59 94 09/21/16 12:05 99/75 96 09/21/16 12:00 98.5 F 93 H 13 114/72 99 09/21/16 11:55 119/94 99 09/21/16 11:50 99 09/21/16 11:45 105/67 92 09/21/16 11:40 95 H 10 L 112/70 92 09/21/16 11:35 103/77 93 09/21/16 11:30 107/67 92 09/21/16 11:25 95/61 92 09/21/16 11:20 93/59 93 09/21/16 11:15 96/63 95 09/21/16 11:10 122/83 96 09/21/16 11:05 103/62 96 09/21/16 11:00 102/72 96 09/21/16 10:55 104/71 96 09/21/16 10:50 105/64 93 09/21/16 10:45 103/68 96 09/21/16 10:40 94 09/21/16 10:35 103/64 94 09/21/16 10:30 100/75 94 09/21/16 10:25 103/60 94 09/21/16 10:20 115/74 94 09/21/16 10:15 123/81 94 09/21/16 10:10 110/70 93 09/21/16 10:05 105/77 93 09/21/16 10:00 20 102/65 93 09/21/16 09:55 12 101/67 92 09/21/16 09:45 20 95/60 94 09/21/16 09:40 16 95/57 91 09/21/16 09:00 98.8 F 92 H 18 97/61 95 09/21/16 08:50 16 102/77 92 Intake and Output 09/21/16 09/22/16 09/22/16 21:59 05:59 13:59 Intake Total 684 / 684 1307 / 1307 158 / 158 Output Total 405 / 405 950 / 950 310 / 310 Balance 279 / 279 357 / 357 -152 / -152 Intake: IV 144 / 144 1307 / 1307 8 / 8 Sodium Chloride 0.9% 1, 1000 / 1000 000 ml @ 100 mls/hr IV . Q10H [facility] Rx#:[id number] Sodium Chloride 0.9% 250 250 / 250 ml @ 20 mls/hr IV . [id number] [facility] Rx#:[id number] Maxipime 2 gm In Dextrose 50 / 50 5% in Water 50 ml @ 100 mls/hr IV Q12H [facility] Rx#: [id number] Levophed 16 mg In Sodium 94 / 94 57 / 57 8 / 8 Chloride 0.9% 234 ml @ 10 MCG/MIN 9.37 mls/hr IV Q24H [facility] Rx#:[id number] Oral 540 / 540 150 / 150 Output: Urine Catheter Amount 405 / 405 950 / 950 310 / 310 Other: Meal Dinner Percent of Meal Consumed 10 Feeding Ability Needs Supervision Weight 126 lb 3.2 oz Intake & Output: Intake & Output 09/21/16 09/22/16 09/22/16 21:59 05:59 13:59 Intake Total 684 / 684 1307 / 1307 158 / 158 Output Total 405 / 405 950 / 950 310 / 310 Balance 279 / 279 357 / 357 -152 / -152 Weight 126 lb 3.2 oz Intake: IV 144 / 144 1307 / 1307 8 / 8 Sodium Chloride 0.9% 1, 1000 / 1000 000 ml @ 100 mls/hr IV . Q10H [facility] Rx#:[id number] Sodium Chloride 0.9% 250 250 / 250 ml @ 20 mls/hr IV . [id number] [facility] Rx#:[id number] Maxipime 2 gm In Dextrose 50 / 50 5% in Water 50 ml @ 100 mls/hr IV Q12H [facility] Rx#: [id number] Levophed 16 mg In Sodium 94 / 94 57 / 57 8 / 8 Chloride 0.9% 234 ml @ 10 MCG/MIN 9.37 mls/hr IV Q24H [facility] Rx#:[id number] Oral 540 / 540 150 / 150 Output: Urine Catheter Amount 405 / 405 950 / 950 310 / 310 Other: Meal Dinner Percent of Meal Consumed 10 Feeding Ability Needs Supervision - General Appearance General appearance: appears started age EENT: mucous membranes dry (mild) Neck: supple Respiratory: rales (at bilateral bases) Cardiology: no edema, regular rate, regular rhythm, normal S1, normal S2 Gastrointestinal: normoactive bowel sounds, no tenderness, no guarding Integumentary: erythema (on left lower extremity) Neurologic: no focal deficit, no asterixis, alert and oriented x3 Musculoskeletal: erythema Psychiatric: mood/affect appropriate - Lab 09/22/16 04:10 09/22/16 04:10 Most recent lab results Calcium 7.8 mg/dl (8.6-10.4) L 09/22/16 04:10 Phosphorus 1.9 mg/dL (2.7-4.5) L 09/22/16 04:10 Magnesium 1.5 mg/dL (1.6-2.5) L 09/22/16 04:10 Assessment and Plan (1) DOMINIQUE (acute kidney injury) Cr down to 0.8 Furosemide has been d/c Pt has crackles in her lungs (has hx of CHF) so needs to be restarted sooner rather than later will d/c maintenance IVFs Replete electrolytes Resume regular diet at dinner time Lasix can be restarted tomorrow or earlier if needed labs in pm - RN to call - titrate down Norepi as tolerated to keep SBPs ~110-120 Status: Acute (2) Leukocytosis cultures negative Improving with IVFs and empiric antibiotics Status: Acute (3) Septic shock BPs ok, pressors to be titrated down Leukocytosis improving renal function down to baseline Status: Acute (4) Hyponatremia Na now 135 with IVFs and po intake Status: Acute (5) Nephrolithiasis hx , asymptomatic Status: Acute (6) CHF (congestive heart failure) hx of CHF, lasix was on hold CXR with pulm congestion d/c maintenance IVF resumelasix tomorrow in AM or sooner if needed Status: Acute
--- NOTE | 2016-09-22 08:33 | XRay Report ---
CLINICAL INFORMATION: Renal failure. Weakness. TECHNIQUE: Upright AP portable chest x-ray COMPARISON: 09/20/2016, 09/11/2016 FINDINGS: No change in right central venous catheter position. Pulmonary vascularity is more prominent than on previous examination. This may indicate volume overload. There are bibasilar infiltrates which are new since previous examination. Findings may be due to pulmonary edema or pneumonia. Clinical correlation follow-up radiographs necessary. IMPRESSION: 1. Increased pulmonary congestion. Findings may be due to volume overload 2. Bibasilar infiltrates Interpreted and Authenticated by: Matias Iqbal 09/22/16
[2016-09-22] MEDS: HEPARIN 5,000 UNIT/ML VIAL SQ SCH ×2 (08:53→21:16)
[2016-09-22] MEDS: FAMOTIDINE 20 MG TABLET PO SCH (08:54)
[2016-09-22] MEDS: clonazePAM 0.5 MG TABLET PO SCH ×3 (08:54→21:16)
[2016-09-22] MEDS: DOCUSATE SODIUM 100 MG CAPSULE PO SCH ×2 (08:54→21:16)
[2016-09-22] MEDS: 0.9 % SODIUM CHLORIDE 10 ML SYRINGE IV PRN ×3 (08:54→15:58)
[2016-09-22] MEDS ORDERED: MAGNESIUM SULFATE 2 GM/50 ML BAG IV ONE (09:00)
[2016-09-22] MEDS: FLUTICASONE PROPIONATE SPRAY.NAS NS SCH (09:04)
[2016-09-22] MEDS: CEFEPIME 2 GM in DEXTROSE 5% IN WATER 50 ML IV SCH ×2 (09:05→21:18)
[2016-09-22] MEDS: BUDESONIDE 1 PUFF INHALER INH SCH ×2 (09:05→21:18)
[2016-09-22] MEDS: TIOTROPIUM BROMIDE 18 MCG INHALANT INH SCH (09:06)
[2016-09-22] MEDS: BUDESONIDE 0.5 MG/2 ML AMPUL.NEB NEB SCH (09:10)
[2016-09-22] MEDS ORDERED: LEVOFLOXACIN 750 MG/150 ML BAG IV SCH (10:00)
--- NOTE | 2016-09-22 10:14 | Internal Med Progress Note ---
Medical - PN: Subj Patient information: Note initiated : 09/22/16 at 10:10 am Service Date, if different from initiated Date: [] Patient: Shiela Ceballos 61 y/o F admitted on 09/20/16 for Weakness/Renal Failure, Hyperkalemia, Leukocytosis. Chief Complaint: [] Interval history: 09/20- patient admitted critically ill with weakness hyperkalemia,hypotension sepsis and acute renal failure along with mental status change. Recent fall sustaining Left third to fifth metatarsal injury/fracture and subsequent hematoma dorsum of left foot. Patient lives in [facility] along with her . hasn't been able to take care of herself due to increasing weakness and pain. Initial workup in the ER revealed potassium 6.4 along with creatinine 1.7 and white count 26,000. Patient was started on hyperkalemia protocol. 09/21-more lucid and alert and responsive. Creatinine 1.4. Potassium down to 4. White count 27,000. No clear source. surgery/Orthopedics consulted for Lt foot hematoma. on broad antibiotic coverage cefepime,levaquin and vancomycin. No overnight fever chills nausea vomiting. on 3 L oxygen. nephrology recommends systolics around 110. continue vasopressors. History of underlying COPD. Resume home meds except for antihypertensives 09/22- patient doing well. No overnight events. No concerns per staff. Creatinine at 0.8. white count down from 27.5-20.6. potassium at 3.3, phosphorus 1.9 magnesium 1.5 on replacement as per nephrology. orthopedics consulted. Orthopedics of opinion that fracture blister on dorsum of the foot would need wound care. Nonoperative underlying metatarsal fracture. at bedside. Discussed treatment plan. Nephrology on board. clinically resolving. Chest imaging revealed bibasilar pneumonia. continue broad antibiotic coverage including cefepime and Levaquin vancomycin - Constitutional Vitals: Vital Signs Temp Pulse Resp BP Pulse Ox 98.2 F 92 H 12 92/66 93 09/22/16 04:00 09/22/16 09:10 09/22/16 09:10 09/22/16 05:59 09/22/16 09:10 Period Temp Pulse Resp BP Sys/[place] Pulse Ox Last 24 Hr 98.2 F-99.1 F 78-103 04-22 92-133/57-94 91-99 Intake and Output 09/21/16 09/22/16 09/22/16 21:59 05:59 13:59 Intake Total 684 / 684 1307 / 1307 208 / 208 Output Total 405 / 405 950 / 950 310 / 310 Balance 279 / 279 357 / 357 -102 / -102 Weight 126 lb 3.2 oz Intake & Output: Intake & Output 09/21/16 09/22/16 09/22/16 21:59 05:59 13:59 Intake Total 684 / 684 1307 / 1307 208 / 208 Output Total 405 / 405 950 / 950 310 / 310 Balance 279 / 279 357 / 357 -102 / -102 Weight 126 lb 3.2 oz Intake: IV 144 / 144 1307 / 1307 58 / 58 Sodium Chloride 0.9% 1, 1000 / 1000 000 ml @ 100 mls/hr IV . Q10H [facility] Rx#:[id number] Sodium Chloride 0.9% 250 250 / 250 ml @ 20 mls/hr IV . [id number] [facility] Rx#:[id number] Maxipime 2 gm In Dextrose 50 / 50 5% in Water 50 ml @ 100 mls/hr IV Q12H [facility]Y Rx#: [id number] Levophed 16 mg In Sodium 94 / 94 57 / 57 8 / 8 Chloride 0.9% 234 ml @ 10 MCG/MIN 9.37 mls/hr IV Q24H [facility] Rx#:[id number] Oral 540 / 540 150 / 150 Output: Urine Catheter Amount 405 / 405 950 / 950 310 / 310 Other: Meal Dinner Percent of Meal Consumed 10 Feeding Ability Needs Supervision General appearance: cooperative, no acute distress Exam: alert oriented nonlabored breathingOn 4 L oxygen left foot hematoma covered in dressing No anxiety Medical - PN: Obj Da - Labs CBC & Chem 7: 09/22/16 04:10 09/22/16 04:10 Labs: Abnormal Lab Results 09/22/16 09/22/16 09/21/16 04:10 04:10 04:05 WBC 20.6 H RBC 3.36 L Hgb 9.5 L Hct 30.0 L Seg Neutrophils % 85 H Lymphocytes % 7 L Myelocytes % Basophilic Stippling ESR Sodium 131 L Chloride 94 L 88 L Carbon Dioxide 31 H BUN 37 H Creatinine 1.4 H Uric Acid 10.4 H Calcium 7.8 L Phosphorus 1.9 L Magnesium 1.5 L C-Reactive Protein Total Protein 5.0 L 5.4 L Albumin 3.0 L Globulin 2.0 L 2.0 L 09/21/16 09/20/16 09/20/16 04:05 23:07 23:07 WBC 27.5 H RBC 3.51 L Hgb 10.0 L Hct 31.3 L Seg Neutrophils % 79 H Lymphocytes % 7 L Myelocytes % 2 H Basophilic Stippling 1+ A ESR 29 H Sodium Chloride Carbon Dioxide BUN Creatinine Uric Acid Calcium Phosphorus Magnesium C-Reactive Protein 1.9 H Total Protein Albumin Globulin Meds: Medications Acetaminophen (Tylenol) 650 mg PO Q4-6HP PRN PRN Reason: PAIN/FEVER > 101 Albuterol Sulfate (Ventolin) 1 puff INH Q6HP PRN PRN Reason: Shortness Of Breath Last Admin: 09/22/16 06:30 Dose: 1 puff Albuterol/Ipratropium (Duoneb) 3 ml NEB Q4HP PRN PRN Reason: Shortness Of Breath Last Admin: 09/22/16 09:10 Dose: 3 ml Albuterol/Ipratropium (Duoneb) 3 ml NEB Q4HP PRN PRN Reason: Shortness Of Breath Last Admin: 09/21/16 11:40 Dose: 3 ml Budesonide (Pulmicort) 2 puff INH BID [facility] Last Admin: 09/22/16 09:05 Dose: Not Given Budesonide (Pulmicort) 0.5 mg NEB DAILY [facility] Last Admin: 09/22/16 09:10 Dose: 0.5 mg Clonazepam (Klonopin) 0.5 - 1 mg PO BID [facility] Last Admin: 09/22/16 08:54 Dose: 0.5 mg Docusate Sodium (Colace) 100 mg PO BID [facility] Last Admin: 09/22/16 08:54 Dose: 100 mg Famotidine (Pepcid) 20 mg PO DAILY [facility] Last Admin: 09/22/16 08:54 Dose: 20 mg Fluticasone Propionate (Flonase) 2 spray NS DAILY [facility] Last Admin: 09/22/16 09:04 Dose: Not Given Heparin Sodium (Porcine) (Heparin) 5,000 unit SQ Q12 [facility] Last Admin: 09/22/16 08:53 Dose: 5,000 unit Levofloxacin (Levaquin) 750 mg in 150 mls @ 100 mls/hr IV Q48H [facility] Last Admin: 09/22/16 10:09 Dose: 100 mls/hr Vancomycin HCl 1,000 mg/ (Sodium Chloride) 250 mls @ 250 mls/hr IV Q24H [facility] Last Infusion: 09/21/16 13:30 Dose: Infused Vasopressin 20 unit/ Dextrose 100 mls @ 12 mls/hr IV Q8HP PRN; Protocol; 0.04 UNIT/MIN PRN Reason: Hypotension Cefepime HCl 2 gm/ Dextrose 50 mls @ 100 mls/hr IV Q12H [facility] Last Admin: 09/22/16 09:05 Dose: 100 mls/hr Norepinephrine Bitartrate 16 (mg/ Sodium Chloride) 250 mls @ 9.37 mls/hr IV Q24H [facility]; 10 MCG/MIN PRN Reason: Protocol Last Titration: 09/22/16 06:09 Dose: 5 mcg/min, 4.68 mls/hr Sodium Chloride (Sodium Chloride 0.9%) 250 mls @ 20 mls/hr IV .[id number] [facility] Last Admin: 09/22/16 07:38 Dose: 20 mls/hr Potassium Phosphate 20 meq/ (Dextrose) 254.5455 mls @ 127.273 mls/hr IV ONCE ONE Stop: 09/22/16 10:29 Last Admin: 09/22/16 10:02 Dose: 127.273 mls/hr Potassium Phosphate 20 meq/ (Dextrose) 254.5455 mls @ 127.273 mls/hr IV ONCE ONE Stop: 09/22/16 13:59 Ondansetron HCl (Zofran) 4 mg IV Q4-6HP PRN PRN Reason: Nausea And Vomiting Oxycodone HCl (Roxicodone) 20 mg PO Q4-6HP PRN PRN Reason: Pain Last Admin: 09/22/16 07:27 Dose: 20 mg [facility]oprazole S[facility] ([facility]ix) [facility] Admin: 09/22/16 07:26 Dose: 40 mg Linaclotide [Linzess (] 290 Mcg Cap) 1 dose PO DAILY [facility] Last Admin: 09/22/16 09:05 Dose: Not Given Potassium Chloride (Kdur) 20 meq PO [facility] Last Admin: 09/22/16 08:13 Dose: 20 meq Prednisone (Prednisone) 10 mg PO [facility] Last Admin: 09/22/16 08:13 Dose: 10 mg Senna/Docusate Sodium (Senna Plus Tablet) 1 tab PO HS [facility] Last Admin: 09/21/16 21:17 Dose: 1 tab Sodium Chloride (Saline Flush) 10 ml IV Q8 [facility] Last Admin: 09/22/16 05:45 Dose: 10 ml Sodium Chloride (Saline Flush) 10 ml IV UD PRN PRN Reason: meds and labs draws Last Admin: 09/22/16 10:02 Dose: 10 ml Tiotropium Matheny (Spiriva) 36 mcg INH DAILY [facility] Last Admin: 09/22/16 09:06 Dose: 1 puff Vancomycin HCl (Vancomycin Per Pharmacy) 1 order IV UD [facility] Medical - PN: A/P - Time Spent With Patient Total time spent is greater than 50% in coordination of care (as documented) at patient's floor/unit and/or counseling patient: Greater than 35 minutes (critical care time) (1) Septic shock Status: Acute Assessment and plan: * Septic shock-secondary to bibasal pneumonia, wean vasopressors as indicated. * Acute renal failure management nephrology. creatinine down from 1.7 2.8. Nephrology on board * Hyperkalemia managed per nephrology. now at 3.3. * Hypomagnesemia and low phosphorus-replacement as per nephrology * Mental status change secondary to sepsis end organ dysfunction-clinically resolved * Lt foot hematoma/blister-orthopedics/wound care consulted. orthopedics recommendations continue wound care. Nonoperative metatarsal fracture * History of COPD continue bronchodilators steroids.on 4 L oxygen * Hypertension - continue home meds on hold in light of septic shock Plan * continueBroad antibiotic coverage * wean vasopressors * wound care * Pre-existing medical condition management as above Current Visit: Yes Medical - PN: Qual - VTE Deep Vein Thrombosis/Pulmonary Embolism Present on Admission: No
[2016-09-22] MEDS: NOREPINEPHRINE BITARTRATE 16 MG in 0.9 % SODIUM CHLORIDE 234 ML IV SCH (10:21)
--- NOTE | 2016-09-22 11:21 | General Surgery Progress Note ---
Surgical - Auxillary Note - Subjective Patient Information: Note initiated : 09/22/16 at 11:10 am Service Date, if different from initiated Date: [] Patient: Shiela Ceballos 61 y/o F admitted on 09/20/16 for Weakness/Renal Failure, Hyperkalemia, Leukocytosis. Chief Complaint: [] Patient resting in bed. No complaints. Vital Signs Temp Pulse Resp BP Pulse Ox 98.8 F 92 H 12 112/81 93 09/22/16 07:00 09/22/16 09:10 09/22/16 09:10 09/22/16 08:00 09/22/16 09:10 Period Temp Pulse Resp BP Sys/[place] Pulse Ox Last 24 Hr 98.2 F-99.1 F 78-103 10-23 92-133/57-94 84-99 Intake and Output 09/21/16 09/22/16 09/22/16 21:59 05:59 13:59 Intake Total 684 / 684 1307 / 1307 1577 / 1577 Output Total 405 / 405 950 / 950 490 / 490 Balance 279 / 279 357 / 357 1087 / 1087 Weight 126 lb 3.2 oz PE: Abdomen soft and non tender. Left foot wrapped with dressing from Ortho consult. A/P: Sepsis: Ortho consult for left foot fractures done. Recommendation for non-operative management including no debridement of overlying blister. ABD Xrays were reviewed with radiologist last evening. Stool in colon w/ non specific bowel gas pattern. No sign of obstruction. ABD xrays suggested lower lobe pnuemonia findings. this was discussed last evening with Hospitalist. This morning's xrays show bilateral infiltrates--presumably source of leukocytosis. No obvious general surgery issues. As for foot wound--keep clean and cover with xeroform guaze followed by kerlix roll daily.
[2016-09-22] MEDS: VANCOMYCIN 1,000 MG in 0.9 % SODIUM CHLORIDE 250 ML IV SCH (11:42)
[2016-09-22] MEDS ORDERED: NOREPINEPHRINE BITARTRATE 16 MG in 0.9 % SODIUM CHLORIDE 234 ML IV PRN (14:35)
[2016-09-22 16:49] LABS: ALT/SGPT 16 U/l (0-40); Albumin 3.2 gm/dL (3.2-5.2); Albumin/Globulin Ratio 1.6 (1.0-2.3); Alkaline Phosphatase 54 U/L (39-117); Blood Urea Nitrogen 13 mg/dl (6-20); Magnesium 1.9 mg/dL (1.6-2.5); Phosphorous 2.9 mg/dL (2.7-4.5)
[2016-09-22] MEDS ORDERED: BISACODYL 10 MG SUPP.RECT PR PRN (19:10)
[2016-09-22] MEDS ORDERED: MAGNESIUM HYDROXIDE 30 ML ORAL.SUSP PO PRN (19:10)
[2016-09-22] MEDS ORDERED: FLEETS ADULT ENEMA PR PRN (19:10)
[2016-09-22] MEDS ORDERED: BISACODYL 10 MG SUPP.RECT PR ONE (19:29)
[2016-09-22] MEDS: SENNOSIDES/DOCUSATE SODIUM 1 TAB TABLET PO SCH (21:16)
[2016-09-23] MEDS ORDERED: DILTIAZEM 120 MG CAP.XL.24H PO ONE (00:56)
[2016-09-23] MEDS ORDERED: DILTIAZEM 120 MG CAP.XL.24H PO SCH (01:00)
[2016-09-23] MEDS: 0.9 % SODIUM CHLORIDE 250 ML IV SCH (03:17)
[2016-09-23] MEDS: oxyCODONE HCL 5 MG TABLET PO PRN ×5 (03:18→22:27)
[2016-09-23] MEDS: ALBUTEROL SULFATE 1 PUFF INHALER INH PRN ×3 (03:23→21:32)
[2016-09-23] MEDS: 0.9 % SODIUM CHLORIDE 10 ML SYRINGE IV SCH ×5 (05:44→20:50)
[2016-09-23 06:03] LABS: Mean Cell Volume 89.1 fL (80.0-100.0); Mean Corpuscular HGB Conc 32.3 g/dL (31.0-36.0); Mean Corpuscular Hemoglobin 28.7 pg (26.0-34.0); Platelet Count 275 K/mcL (140-440); RBC 3.43 M/mcL (4.00-5.20); Red Cell Distribution Width 14.5 % (11.5-14.5)
[2016-09-23 06:58] LABS: ALT/SGPT 14 U/l (0-40); Albumin 2.7 gm/dL (3.2-5.2); Albumin/Globulin Ratio 1.2 (1.0-2.3); Alkaline Phosphatase 54 U/L (39-117); Bilirubin,Direct < 0.2 mg/dL (0.0-0.3); Blood Urea Nitrogen 11 mg/dl (6-20); Gamma Glutamyl Transpeptidase 23 U/L (5-36); Magnesium 1.9 mg/dL (1.6-2.5); Phosphorous 1.6 mg/dL (2.7-4.5); Uric Acid 5.4 mg/dL (2.5-8.0)
[2016-09-23] MEDS: PANTOPRAZOLE 40 MG TABLET PO SCH (07:06)
[2016-09-23 07:07] LABS: Lymphocytes % 8 % (15-49); Monocytes % (Manual) 15 % (1-9); Platelet Estimate NORMAL (NORMAL); RBC Morphology NORMAL (NORMAL); Segmented Neutrophils % 77 % (38-78)
[2016-09-23] MEDS: IPRATROPIUM/ALBUTEROL 3 ML AMPUL.NEB NEB PRN ×2 (08:32→15:25)
[2016-09-23] MEDS: BUDESONIDE 0.5 MG/2 ML AMPUL.NEB NEB SCH (08:32)
[2016-09-23] MEDS: FAMOTIDINE 20 MG TABLET PO SCH (08:48)
[2016-09-23] MEDS: DOCUSATE SODIUM 100 MG CAPSULE PO SCH ×2 (08:48→20:49)
[2016-09-23] MEDS: clonazePAM 0.5 MG TABLET PO SCH ×2 (08:49→20:48)
[2016-09-23] MEDS: HEPARIN 5,000 UNIT/ML VIAL SQ SCH ×2 (08:49→20:50)
[2016-09-23] MEDS: predniSONE 10 MG TABLET PO SCH (08:49)
[2016-09-23] MEDS: POTASSIUM CHLORIDE 20 MEQ TABLET PO SCH (08:49)
[2016-09-23] MEDS: CEFEPIME 2 GM in DEXTROSE 5% IN WATER 50 ML IV SCH ×2 (09:00→20:58)
--- NOTE | 2016-09-23 09:09 | Nephrology Progress Note ---
Subjective Patient information: Note initiated : 09/23/16 at 9:09 am Service Date, if different from initiated Date: [] Patient: Shiela Ceballos 61 y/o F admitted on 09/20/16 for Weakness/Renal Failure, Hyperkalemia, Leukocytosis. Chief Complaint: [] Principal diagnosis: weakness with DOMINIQUE and hyperkalemia Interval history: Pt is doing well. Off IVFs, good u/o. off pressors, on regular diet since last night. Cr down to 0.7 Pt stable; will sign off now Appreciate Dr Pappas help in managing this patient Objective - Vital Signs Vital signs: Vital Signs Temp Pulse Pulse Resp BP BP Pulse Ox 09/23/16 07:00 16 135/76 93 09/23/16 06:00 102 H 18 100/69 96 09/23/16 05:00 94 H 101/71 93 09/23/16 04:00 95 H 97/64 92 09/23/16 03:00 100 H 160/75 92 09/23/16 02:00 100 H 119/75 94 09/23/16 01:00 100 H 113/81 96 09/23/16 00:00 98.4 F 100 H 16 114/87 94 09/22/16 23:00 111 H 18 128/89 96 09/22/16 22:00 96 H 16 125/81 100 09/22/16 21:00 97 H 112/83 94 09/22/16 20:00 98.2 F 98 H 16 109/74 98 09/22/16 19:00 111 H 102/71 94 09/22/16 18:00 14 97 09/22/16 17:00 16 111/78 94 09/22/16 16:00 98.3 F 100 H 13 114/72 92 09/22/16 15:49 100 H 18 09/22/16 15:00 18 110/78 92 09/22/16 14:00 98.8 F 17 104/76 96 09/22/16 13:00 16 104/83 94 09/22/16 12:00 98.1 F 94 H 18 120/77 93 09/22/16 11:00 20 111/82 95 09/22/16 09:10 92 H 12 93 Intake and Output 09/22/16 09/23/16 09/23/16 21:59 05:59 13:59 Intake Total 794.5455 / 794.5455 250 / 250 Output Total 750 / 750 530 / 530 Balance 44.5455 / 44.5455 -530 / -530 250 / 250 Intake: IV 554.5455 / 554.5455 250 / 250 Sodium Chloride 0.9% 250 250 / 250 ml @ 20 mls/hr IV . [id number] [facility] Rx#:[id number] Maxipime 2 gm In Dextrose 50 / 50 5% in Water 50 ml @ 100 mls/hr IV Q12H [facility] Rx#: [id number] Vancomycin 1,000 mg In 250 / 250 Sodium Chloride 0.9% 250 ml @ 250 mls/hr IV Q24H [facility] Rx#:[id number] Oral 240 / 240 Output: Urine Catheter Amount 750 / 750 530 / 530 Other: # Bowel Movements 1 1 Weight 124 lb 9.6 oz Intake & Output: Intake & Output 09/22/16 09/23/16 09/23/16 21:59 05:59 13:59 Intake Total 794.5455 / 794.5455 250 / 250 Output Total 750 / 750 530 / 530 Balance 44.5455 / 44.5455 -530 / -530 250 / 250 Weight 124 lb 9.6 oz Intake: IV 554.5455 / 554.5455 250 / 250 Sodium Chloride 0.9% 250 250 / 250 ml @ 20 mls/hr IV . [id number] [facility] Rx#:[id number] Maxipime 2 gm In Dextrose 50 / 50 5% in Water 50 ml @ 100 mls/hr IV Q12H [facility] Rx#: [id number] Vancomycin 1,000 mg In 250 / 250 Sodium Chloride 0.9% 250 ml @ 250 mls/hr IV Q24H [facility] Rx#:[id number] Oral 240 / 240 Output: Urine Catheter Amount 750 / 750 530 / 530 Other: # Bowel Movements 1 1 - General Appearance General appearance: well-developed, well-nourished, appears started age Neck: supple Respiratory: clear (no crackles) Cardiology: no murmurs, regular rate, regular rhythm, normal S1, normal S2 Gastrointestinal: normoactive bowel sounds, no tenderness, no guarding Integumentary: erythema (on LLExt) Neurologic: no focal deficit, no asterixis, alert and oriented x3 Musculoskeletal: erythema (left foot in bandage) Psychiatric: mood/affect appropriate - Lab 09/23/16 04:03 09/23/16 04:03 Most recent lab results Calcium 7.9 mg/dl (8.6-10.4) L 09/23/16 04:03 Phosphorus 1.6 mg/dL (2.7-4.5) L 09/23/16 04:03 Magnesium 1.9 mg/dL (1.6-2.5) 09/23/16 04:03 Assessment and Plan (1) DOMINIQUE (acute kidney injury) Cr down to 0.7 off IVFs off presspors doing well phos is low - replete with 2 doses of Neutraphos on regular diet now can restart lasix in AM Status: Acute (2) Leukocytosis cultures negative Improving with IVFs and empiric antibiotics WBC is trending down to 18,000 Status: Acute (3) Septic shock resolved BPs ok, off pressors Leukocytosis improving renal function down to baseline Status: Acute (4) Hyponatremia Na now 135 with IVFs and po intake Status: Acute (5) Nephrolithiasis hx , asymptomatic Status: Acute (6) CHF (congestive heart failure) hx of CHF, lasix has been on hold off IVFs stable resume lasix in AM Status: Acute
[2016-09-23] MEDS: BUDESONIDE 1 PUFF INHALER INH SCH ×2 (09:21→22:27)
[2016-09-23] MEDS: TIOTROPIUM BROMIDE 18 MCG INHALANT INH SCH ×2 (09:22→09:38)
[2016-09-23] MEDS ORDERED: NEUTRA PHOS 1 PACKET PO ONE ×2 (09:47→13:00)
[2016-09-23] MEDS: FLUTICASONE PROPIONATE SPRAY.NAS NS SCH (10:04)
[2016-09-23] MEDS ORDERED: FUROSEMIDE 40 MG TABLET PO ONE ×3 (11:12→20:00)
[2016-09-23] MEDS: VANCOMYCIN 1,000 MG in 0.9 % SODIUM CHLORIDE 250 ML IV SCH (11:22)
--- NOTE | 2016-09-23 12:03 | Internal Med Progress Note ---
Medical - PN: Subj Patient information: Note initiated : 09/23/16 at 11:59 am Service Date, if different from initiated Date: [] Patient: Shiela Ceballos 61 y/o F admitted on 09/20/16 for Weakness/Renal Failure, Hyperkalemia, Leukocytosis. Chief Complaint: [] Interval history: 09/20- patient admitted critically ill with weakness hyperkalemia,hypotension sepsis and acute renal failure along with mental status change. Recent fall sustaining Left third to fifth metatarsal injury/fracture and subsequent hematoma dorsum of left foot. Patient lives in [facility] along with her . hasn't been able to take care of herself due to increasing weakness and pain. Initial workup in the ER revealed potassium 6.4 along with creatinine 1.7 and white count 26,000. Patient was started on hyperkalemia protocol. 09/21-more lucid and alert and responsive. Creatinine 1.4. Potassium down to 4. White count 27,000. No clear source. surgery/Orthopedics consulted for Lt foot hematoma. on broad antibiotic coverage cefepime,levaquin and vancomycin. No overnight fever chills nausea vomiting. on 3 L oxygen. nephrology recommends systolics around 110. continue vasopressors. History of underlying COPD. Resume home meds except for antihypertensives 09/22- patient doing well. No overnight events. No concerns per staff. Creatinine at 0.8. white count down from 27.5-20.6. potassium at 3.3, phosphorus 1.9 magnesium 1.5 on replacement as per nephrology. orthopedics consulted. Orthopedics of opinion that fracture blister on dorsum of the foot would need wound care. Nonoperative underlying metatarsal fracture. at bedside. Discussed treatment plan. Nephrology on board. clinically resolving. Chest imaging revealed bibasilar pneumonia. continue broad antibiotic coverage including cefepime and Levaquin vancomycin 09/23- white count down to 18.4. Creatinine normalized. Electrolytes improved except for phosphorus of 1.6. Managed per nephrology. clinically improving. Transfer to medical floor. No overnight events including fever chills nausea vomiting. transfer to medical floor. - Constitutional Vitals: Vital Signs Temp Pulse Resp BP Pulse Ox 99.2 F 118 H 16 101/70 95 09/23/16 08:00 09/23/16 09:37 09/23/16 11:00 09/23/16 11:00 09/23/16 11:00 Period Temp Pulse Resp BP Sys/Mcarthur Pulse Ox Last 24 Hr 98.1 F-99.2 F 94-118 12-22 97-160/64-91 92-100 Intake and Output 09/22/16 09/23/16 09/23/16 21:59 05:59 13:59 Intake Total 794.5455 / 794.5455 660 / 660 Output Total 750 / 750 530 / 530 870 / 870 Balance 44.5455 / 44.5455 -530 / -530 -210 / -210 Weight 124 lb 9.6 oz Intake & Output: Intake & Output 09/22/16 09/23/16 09/23/16 21:59 05:59 13:59 Intake Total 794.5455 / 794.5455 660 / 660 Output Total 750 / 750 530 / 530 870 / 870 Balance 44.5455 / 44.5455 -530 / -530 -210 / -210 Weight 124 lb 9.6 oz Intake: IV 554.5455 / 554.5455 300 / 300 Sodium Chloride 0.9% 250 250 / 250 ml @ 20 mls/hr IV . [id number] [facility] Rx#:[id number] Maxipime 2 gm In Dextrose 50 / 50 50 / 50 5% in Water 50 ml @ 100 mls/hr IV Q12H [facility] Rx#: [id number] Vancomycin 1,000 mg In 250 / 250 Sodium Chloride 0.9% 250 ml @ 250 mls/hr IV Q24H [facility] Rx#:[id number] Oral 240 / 240 360 / 360 Output: Urine Catheter Amount 750 / 750 530 / 530 870 / 870 Other: Meal Breakfast Percent of Meal Consumed 25% Feeding Ability Assist with Tray Set Up # Bowel Movements 1 1 General appearance: cooperative, no acute distress Exam: alert oriented nonlabored breathing no telemetry events No pallor Medical - PN: Obj Da - Labs CBC & Chem 7: 09/23/16 04:03 09/23/16 04:03 Labs: Abnormal Lab Results 09/23/16 09/23/16 09/23/16 09:23 04:03 04:03 WBC 18.3 H RBC 3.43 L Hgb 9.8 L Hct 30.5 L Seg Neutrophils % Lymphocytes % 8 L Monocytes % (Manual) 15 H Myelocytes % Basophilic Stippling ESR Sodium Chloride 94 L Carbon Dioxide BUN Creatinine Glucose 64 L Uric Acid Calcium 7.9 L Phosphorus 1.6 L Magnesium Lactate Dehydrogenase 311 H C-Reactive Protein Total Protein 5.0 L Albumin 2.7 L Globulin Vancomycin Trough 18.1 H 09/22/16 09/22/16 09/22/16 15:48 04:10 04:10 WBC 20.6 H RBC 3.36 L Hgb 9.5 L Hct 30.0 L Seg Neutrophils % 85 H Lymphocytes % 7 L Monocytes % (Manual) Myelocytes % Basophilic Stippling ESR Sodium Chloride 94 L 94 L Carbon Dioxide 31 H BUN Creatinine Glucose Uric Acid Calcium 7.7 L 7.8 L Phosphorus 1.9 L Magnesium 1.5 L Lactate Dehydrogenase C-Reactive Protein Total Protein 5.2 L 5.0 L Albumin 3.0 L Globulin 2.0 L 2.0 L Vancomycin Trough 09/21/16 09/21/16 09/20/16 04:05 04:05 23:07 WBC 27.5 H RBC 3.51 L Hgb 10.0 L Hct 31.3 L Seg Neutrophils % 79 H Lymphocytes % 7 L Monocytes % (Manual) Myelocytes % 2 H Basophilic Stippling 1+ A ESR Sodium 131 L Chloride 88 L Carbon Dioxide 31 H BUN 37 H Creatinine 1.4 H Glucose Uric Acid 10.4 H Calcium Phosphorus Magnesium Lactate Dehydrogenase C-Reactive Protein 1.9 H Total Protein 5.4 L Albumin Globulin 2.0 L Vancomycin Trough 09/20/16 23:07 WBC RBC Hgb Hct Seg Neutrophils % Lymphocytes % Monocytes % (Manual) Myelocytes % Basophilic Stippling ESR 29 H Sodium Chloride Carbon Dioxide BUN Creatinine Glucose Uric Acid Calcium Phosphorus Magnesium Lactate Dehydrogenase C-Reactive Protein Total Protein Albumin Globulin Vancomycin Trough Meds: Medications Acetaminophen (Tylenol) 650 mg PO Q4-6HP PRN PRN Reason: PAIN/FEVER > 101 Albuterol Sulfate (Ventolin) 1 puff INH Q6HP PRN PRN Reason: Shortness Of Breath Last Admin: 09/23/16 03:23 Dose: 1 puff Albuterol/Ipratropium (Duoneb) 3 ml NEB Q4HP PRN PRN Reason: Shortness Of Breath Last Admin: 09/23/16 08:32 Dose: 3 ml Albuterol/Ipratropium (Duoneb) 3 ml NEB Q4HP PRN PRN Reason: Shortness Of Breath Last Admin: 09/21/16 11:40 Dose: 3 ml Bisacodyl (Dulcolax) 10 mg [place] Q2-3DAYS PRN PRN Reason: Constipation Budesonide (Pulmicort) 2 puff INH BID [facility] Last Admin: 09/23/16 09:21 Dose: Not Given Budesonide (Pulmicort) 0.5 mg NEB DAILY [facility] Last Admin: 09/23/16 08:32 Dose: 0.5 mg Clonazepam (Klonopin) 0.5 - 1 mg PO BID [facility] Last Admin: 09/23/16 08:49 Dose: 0.5 mg Diltiazem HCl (Cardizem Cd) 120 mg PO DAILY [facility] Last Admin: 09/23/16 00:58 Dose: Not Given Docusate Sodium (Colace) 100 mg PO BID [facility] Last Admin: 09/23/16 08:48 Dose: 100 mg Fluticasone Propionate (Flonase) 2 spray NS DAILY [facility] Last Admin: 09/23/16 10:04 Dose: Not Given Furosemide (Lasix) 40 mg PO ONCE ONE Stop: 09/23/16 20:01 Heparin Sodium (Porcine) (Heparin) 5,000 unit SQ Q12 [facility] Last Admin: 09/23/16 08:49 Dose: 5,000 unit Levofloxacin (Levaquin) 750 mg in 150 mls @ 100 mls/hr IV Q48H [facility] Last Infusion: 09/22/16 11:30 Dose: Infused Vancomycin HCl 1,000 mg/ (Sodium Chloride) 250 mls @ 250 mls/hr IV Q24H [facility] Last Admin: 09/23/16 11:22 Dose: 250 mls/hr Vasopressin 20 unit/ Dextrose 100 mls @ 12 mls/hr IV Q8HP PRN; Protocol; 0.04 UNIT/MIN PRN Reason: Hypotension Cefepime HCl 2 gm/ Dextrose 50 mls @ 100 mls/hr IV Q12H [facility] Last Infusion: 09/23/16 09:40 Dose: Infused Sodium Chloride (Sodium Chloride 0.9%) 250 mls @ 20 mls/hr IV .[id number] [facility] Last Infusion: 09/23/16 06:22 Dose: Infused Norepinephrine Bitartrate 16 (mg/ Sodium Chloride) 250 mls @ 9.37 mls/hr IV DAILYP PRN; Protocol; 10 MCG/MIN PRN Reason: Low Blood Pressure Sodium Chloride (Sodium Chloride 0.9%) 250 mls @ 20 mls/hr IV .[id number] [facility] Last Admin: 09/23/16 03:17 Dose: Not Given Magnesium Hydroxide (Milk Of Magnesia) 30 ml PO DAILYP PRN PRN Reason: Constipation Ondansetron HCl (Zofran) 4 mg IV Q4-6HP PRN PRN Reason: Nausea And Vomiting Oxycodone HCl (Roxicodone) 20 mg PO Q4-6HP PRN PRN Reason: Pain Last Admin: 09/23/16 07:06 Dose: 20 mg Pantoprazole Sodium (Protonix) 40 mg PO [facility] Last Admin: 09/23/16 07:06 Dose: 40 mg Linaclotide [Linzess (] 290 Mcg Cap) 1 dose PO DAILY [facility] Last Admin: 09/23/16 10:01 Dose: Not Given Potassium Chloride (Kdur) 20 meq PO [facility] Last Admin: 09/23/16 08:49 Dose: 20 meq Potassium/Phosphorus/Sodium (Neutra Phos) 1 packet PO ONCE ONE Stop: 09/23/16 13:01 Prednisone (Prednisone) 10 mg PO [facility] Last Admin: 09/23/16 08:49 Dose: 10 mg Quetiapine Fumarate (Seroquel) 12.5 mg PO BID [facility] Senna/Docusate Sodium (Senna Plus Tablet) 1 tab PO HS [facility] Last Admin: 09/22/16 21:16 Dose: 1 tab Sodium Biphosphate/Sodium Phosphate (Fleets Adult) 1 dose MO Q3-4DAYS PRN PRN Reason: Constipation Sodium Chloride (Saline Flush) 10 ml IV Q8 [facility] Last Admin: 09/23/16 11:23 Dose: 10 ml Sodium Chloride (Saline Flush) 10 ml IV UD PRN PRN Reason: meds and labs draws Last Admin: 09/22/16 15:58 Dose: 10 ml Tiotropium [place] (Spiriva) 36 mcg INH DAILY [facility] Last Admin: 09/23/16 09:38 Dose: 2 puff Vancomycin HCl (Vancomycin Per Pharmacy) 1 order IV [facility] Medical - PN: A/P - Time Spent With Patient Total time spent is greater than 50% in coordination of care (as documented) at patient's floor/unit and/or counseling patient: 25 - 35 minutes (1) Septic shock Status: Acute Assessment and plan: * Bibasal pneumonia-on antibiotic coverage. Clinically improving. * Septic shock-fully resolved off pressors. White count down from 27,000-18. Continue antibiotic coverage * Lt foot hematoma/blister-orthopedics/wound care consulted. orthopedics recommendations continue wound care. Nonoperative metatarsal fracture * Acute renal failure management nephrology. clinically resolved. Creatinine at baseline * Hyperkalemia managed per nephrology.resolved * Hypomagnesemia and low phosphorus- ngoing replacement per nephrology * anxiety disorder on quetiapine * Mental status change secondary to sepsis end organ dysfunction-clinically resolved * History of COPD continue bronchodilators steroids. On home oxygen * Hypertension - restart diltiazem Plan * continue antibiotic coverage * transfer to medical floor * Renal issues less electrolyte management per nephrology * wound care * Pre-existing medical condition management as above * case management to arrange SNF transfer likely Saturday Current Visit: Yes Medical - PN: Qual - VTE Deep Vein Thrombosis/Pulmonary Embolism Present on Admission: No
[2016-09-23] MEDS ORDERED: ACETAMINOPHEN 325 MG TABLET PO PRN (13:33)
[2016-09-23] MEDS ORDERED: MAGNESIUM HYDROXIDE 30 ML ORAL.SUSP PO PRN (13:33)
[2016-09-23] MEDS ORDERED: IPRATROPIUM/ALBUTEROL 3 ML AMPUL.NEB NEB PRN (13:33)
[2016-09-23] MEDS ORDERED: VANCOMYCIN PER PHARMACY IV SCH (13:33)
[2016-09-23] MEDS ORDERED: FLEETS ADULT ENEMA PR PRN (13:33)
[2016-09-23] MEDS ORDERED: ONDANSETRON 4 MG/2 ML VIAL IV PRN (13:33)
[2016-09-23] MEDS ORDERED: 0.9 % SODIUM CHLORIDE 10 ML SYRINGE IV PRN (13:33)
[2016-09-23] MEDS: DILTIAZEM 120 MG CAP.XL.24H PO SCH (16:03)
[2016-09-23] MEDS: QUEtiapine 25 MG TABLET PO SCH (20:49)
[2016-09-23] MEDS: SENNOSIDES/DOCUSATE SODIUM 1 TAB TABLET PO SCH (20:49)
[2016-09-23] MEDS ORDERED: QUEtiapine 25 MG TABLET PO SCH (21:00)
[2016-09-24 06:11] LABS: Mean Cell Volume 89.2 fL (80.0-100.0); Mean Corpuscular HGB Conc 32.2 g/dL (31.0-36.0); Mean Corpuscular Hemoglobin 28.7 pg (26.0-34.0); Platelet Count 284 K/mcL (140-440); RBC 3.68 M/mcL (4.00-5.20); Red Cell Distribution Width 14.2 % (11.5-14.5)
[2016-09-24 06:57] LABS: ALT/SGPT 16 U/l (0-40); Albumin 3.2 gm/dL (3.2-5.2); Albumin/Globulin Ratio 1.3 (1.0-2.3); Alkaline Phosphatase 60 U/L (39-117); Bilirubin,Direct < 0.2 mg/dL (0.0-0.3); Blood Urea Nitrogen 10 mg/dl (6-20); Gamma Glutamyl Transpeptidase 25 U/L (5-36); Magnesium 1.8 mg/dL (1.6-2.5); Phosphorous 2.1 mg/dL (2.7-4.5); Uric Acid 5.3 mg/dL (2.5-8.0)
[2016-09-24] MEDS: PANTOPRAZOLE 40 MG TABLET PO SCH (07:24)
[2016-09-24] MEDS: POTASSIUM CHLORIDE 20 MEQ TABLET PO SCH (07:25)
[2016-09-24] MEDS: predniSONE 10 MG TABLET PO SCH (07:25)
[2016-09-24] MEDS: 0.9 % SODIUM CHLORIDE 10 ML SYRINGE IV SCH ×3 (07:25→22:38)
--- NOTE | 2016-09-24 08:05 | General Surgery Progress Note ---
Surgical - Auxillary Note - Subjective Patient Information: Note initiated : 09/24/16 at 8:02 am Service Date, if different from initiated Date: [] Patient: Shiela Ceballos 61 y/o F admitted on 09/20/16 for Weakness/Renal Failure, Hyperkalemia, Leukocytosis. Chief Complaint: Patient resting in bed. No complaints Vital Signs Temp Pulse Resp BP Pulse Ox 98.4 F 100 H 22 111/69 94 09/24/16 04:00 09/24/16 04:00 09/24/16 04:00 09/24/16 04:00 09/24/16 04:00 Period Temp Pulse Resp BP Sys/Mcarthur Pulse Ox Last 24 Hr 97.5 F-98.7 F 92-118 14-22 101-122/69-91 91-100 Intake and Output 09/23/16 09/24/16 09/24/16 21:59 05:59 13:59 Intake Total 120 / 120 240 / 240 Output Total 1280 / 1280 800 / 800 Balance -1160 / -1160 -560 / -560 Weight 125 lb 8 oz PE: Focused exam of left foot shows blister on dorsum with surrounding erythema mostly unchanged. No fluctuance of tissue beyond blister. Foot remains tender as before. A/P: Left foot injury with blister formation and underlying fracture. Seen by ortho w/ recommendation conservative management. Continue dressing changes with xeroform guaze and kerlix.
[2016-09-24 08:20] LABS: Band Neutrophils % 1 % (0-10); Lymphocytes % 7 % (15-49); Monocytes % (Manual) 9 % (1-9); Myelocytes % 1 % (0-0); Platelet Estimate NORMAL (NORMAL); RBC Morphology NORMAL (NORMAL); Segmented Neutrophils % 82 % (38-78)
[2016-09-24] MEDS: ALBUTEROL SULFATE 1 PUFF INHALER INH PRN (08:48)
[2016-09-24] MEDS: TIOTROPIUM BROMIDE 18 MCG INHALANT INH SCH (08:48)
[2016-09-24] MEDS: BUDESONIDE 0.5 MG/2 ML AMPUL.NEB NEB SCH (08:49)
[2016-09-24] MEDS: DOCUSATE SODIUM 100 MG CAPSULE PO SCH ×2 (08:51→20:07)
[2016-09-24] MEDS: DILTIAZEM 120 MG CAP.XL.24H PO SCH (08:51)
[2016-09-24] MEDS: clonazePAM 0.5 MG TABLET PO SCH ×2 (08:52→20:07)
[2016-09-24] MEDS: FLUTICASONE PROPIONATE SPRAY.NAS NS SCH (08:52)
[2016-09-24] MEDS: oxyCODONE HCL 5 MG TABLET PO PRN ×3 (08:52→20:08)
[2016-09-24] MEDS: HEPARIN 5,000 UNIT/ML VIAL SQ SCH ×2 (08:53→20:06)
[2016-09-24] MEDS: BUDESONIDE 1 PUFF INHALER INH SCH ×2 (08:55→20:09)
[2016-09-24] MEDS: QUEtiapine 25 MG TABLET PO SCH ×2 (08:55→20:07)
[2016-09-24] MEDS: CEFEPIME 2 GM in DEXTROSE 5% IN WATER 50 ML IV SCH (09:13)
--- NOTE | 2016-09-24 09:15 | XRay Report ---
CLINICAL INFORMATION: Elevated white blood cell count COMPARISON: 09/22/2016 FINDINGS: The heart is mildly enlarged - as previously seen. Mediastinum is unremarkable. Pulmonary vessels decrease in caliber and now only slightly distended. There is moderate interstitial disease throughout both lungs which has improved only slightly. The right diaphragm is mildly elevated and there is subsegmental atelectasis in the left base. IMPRESSION: 1. No evidence CHF on today's study. 2. Mild acute diffuse interstitial disease. Infectious agents which can cause this would includes viral and mycoplasma pneumonia Interpreted and Authenticated by: Matias Guzman 09/24/16
--- NOTE | 2016-09-24 09:56 | Internal Med Progress Note ---
Medical - PN: Subj Patient information: Note initiated : 09/24/16 at 9:46 am Service Date, if different from initiated Date: [] Patient: Shiela Ceballos 61 y/o F admitted on 09/20/16 for Weakness/Renal Failure, Hyperkalemia, Leukocytosis. Chief Complaint: [] Interval history: 09/20- patient admitted critically ill with weakness hyperkalemia,hypotension sepsis and acute renal failure along with mental status change. Recent fall sustaining Left third to fifth metatarsal injury/fracture and subsequent hematoma dorsum of left foot. Patient lives in [facility] along with her . hasn't been able to take care of herself due to increasing weakness and pain. Initial workup in the ER revealed potassium 6.4 along with creatinine 1.7 and white count 26,000. Patient was started on hyperkalemia protocol. 09/21-more lucid and alert and responsive. Creatinine 1.4. Potassium down to 4. White count 27,000. No clear source. surgery/Orthopedics consulted for Lt foot hematoma. on broad antibiotic coverage cefepime,levaquin and vancomycin. No overnight fever chills nausea vomiting. on 3 L oxygen. nephrology recommends systolics around 110. continue vasopressors. History of underlying COPD. Resume home meds except for antihypertensives 09/22- patient doing well. No overnight events. No concerns per staff. Creatinine at 0.8. white count down from 27.5-20.6. potassium at 3.3, phosphorus 1.9 magnesium 1.5 on replacement as per nephrology. orthopedics consulted. Orthopedics of opinion that fracture blister on dorsum of the foot would need wound care. Nonoperative underlying metatarsal fracture. at bedside. Discussed treatment plan. Nephrology on board. clinically resolving. Chest imaging revealed bibasilar pneumonia. continue broad antibiotic coverage including cefepime and Levaquin vancomycin 09/23- white count down to 18.4. Creatinine normalized. Electrolytes improved except for phosphorus of 1.6. Managed per nephrology. clinically improving. Transfer to medical floor. No overnight events including fever chills nausea vomiting. transfer to medical floor. 09/24- improved respiratory status. On 3 L oxygen . however persistent leukocytosis 18.6 despite antibiotic coverage. Obtain cultures from central line. No visible skin lesions/ulceration. No diarrhea/evidence of secondary infectious process. repeat chest imaging. interstitial pneumonitis pattern suggestive of viral/atypicalinfection consistent with low pro-calcitonin. DC cefepime/vancomycin. Extensive cultures negative including blood/wound/blister aspirate. continue physical therapy. Anticipate discharge to [facility] once white count downtrending. - Constitutional Vitals: Vital Signs Temp Pulse Resp BP Pulse Ox 98.1 F 100 H 16 111/78 98 09/24/16 08:00 09/24/16 09:09 09/24/16 09:09 09/24/16 08:00 09/24/16 09:09 Period Temp Pulse Resp BP Sys/Mcarthur Pulse Ox Last 24 Hr 97.5 F-98.7 F 92-106 14-22 101-122/69-86 91-100 Intake and Output 09/23/16 09/24/16 09/24/16 21:59 05:59 13:59 Intake Total 170 / 170 240 / 240 Output Total 1280 / 1280 800 / 800 Balance -1110 / -1110 -560 / -560 Weight 125 lb 8 oz Intake & Output: Intake & Output 09/23/16 09/24/16 09/24/16 21:59 05:59 13:59 Intake Total 170 / 170 240 / 240 Output Total 1280 / 1280 800 / 800 Balance -1110 / -1110 -560 / -560 Weight 125 lb 8 oz Intake: IV 50 / 50 Maxipime 2 gm In Dextrose 50 / 50 5% in Water 50 ml @ 100 mls/hr IV Q12H [facility] Rx#: [id number] Oral 120 / 120 240 / 240 Output: Urine Catheter Amount 1280 / 1280 800 / 800 Other: Meal snack snack Percent of Meal Consumed 25% 50% Feeding Ability Assist with Tray Set Up Independent General appearance: cooperative, no acute distress Exam: alert oriented on 3 L oxygen Poor body habitus Left foot covered in dressing/rthopedic boot Nonlabored breathing no anxiety Medical - PN: Obj Da - Labs CBC & Chem 7: 09/24/16 04:53 09/24/16 04:53 Labs: Abnormal Lab Results 09/24/16 09/24/16 09/24/16 08:08 04:53 04:53 WBC 18.5 H RBC 3.68 L Hgb 10.5 L Hct 32.8 L Seg Neutrophils % 82 H Lymphocytes % 7 L Monocytes % (Manual) Myelocytes % 1 H Chloride 94 L Carbon Dioxide 34 H Glucose Calcium 8.2 L Phosphorus 2.1 L Magnesium Lactate Dehydrogenase 325 H Total Protein 5.6 L Albumin Globulin Vancomycin Trough 22.1 H* 09/23/16 09/23/16 09/23/16 09:23 04:03 04:03 WBC 18.3 H RBC 3.43 L Hgb 9.8 L Hct 30.5 L Seg Neutrophils % Lymphocytes % 8 L Monocytes % (Manual) 15 H Myelocytes % Chloride 94 L Carbon Dioxide Glucose 64 L Calcium 7.9 L Phosphorus 1.6 L Magnesium Lactate Dehydrogenase 311 H Total Protein 5.0 L Albumin 2.7 L Globulin Vancomycin Trough 18.1 H 09/22/16 09/22/16 09/22/16 15:48 04:10 04:10 WBC 20.6 H RBC 3.36 L Hgb 9.5 L Hct 30.0 L Seg Neutrophils % 85 H Lymphocytes % 7 L Monocytes % (Manual) Myelocytes % Chloride 94 L 94 L Carbon Dioxide 31 H Glucose Calcium 7.7 L 7.8 L Phosphorus 1.9 L Magnesium 1.5 L Lactate Dehydrogenase Total Protein 5.2 L 5.0 L Albumin 3.0 L Globulin 2.0 L 2.0 L Vancomycin Trough Meds: Medications Acetaminophen (Tylenol) 650 mg PO Q4-6HP PRN PRN Reason: PAIN/FEVER > 101 Albuterol Sulfate (Ventolin) 1 puff INH Q6HP PRN PRN Reason: Shortness Of Breath Last Admin: 09/24/16 08:48 Dose: 1 puff Albuterol/Ipratropium (Duoneb) 3 ml NEB Q4HP PRN PRN Reason: Shortness Of Breath Last Admin: 09/23/16 15:25 Dose: 3 ml Bisacodyl (Dulcolax) 10 mg [place] Q2-3DAYS PRN PRN Reason: Constipation Budesonide (Pulmicort) 2 puff INH BID [facility] Last Admin: 09/24/16 08:55 Dose: Not Given Budesonide (Pulmicort) 0.5 mg NEB DAILY [facility] Last Admin: 09/24/16 08:49 Dose: 0.5 mg Clonazepam (Klonopin) 0.5 - 1 mg PO BID [facility] Last Admin: 09/24/16 08:52 Dose: 0.5 mg Diltiazem HCl (Cardizem Cd) 120 mg PO DAILY [facility] Last Admin: 09/24/16 08:51 Dose: 120 mg Docusate Sodium (Colace) 100 mg PO BID [facility] Last Admin: 09/24/16 08:51 Dose: 100 mg Fluticasone Propionate (Flonase) 2 spray NS DAILY [facility] Last Admin: 09/24/16 08:52 Dose: 2 spray Heparin Sodium (Porcine) (Heparin) 5,000 unit SQ Q12 [facility] Last Admin: 09/24/16 08:53 Dose: 5,000 unit Cefepime HCl 2 gm/ Dextrose 50 mls @ 100 mls/hr IV Q12H [facility] Last Admin: 09/24/16 09:13 Dose: 100 mls/hr Vancomycin HCl 750 mg/ Sodium (Chloride) 250 mls @ 250 mls/hr IV DAILY [facility] Magnesium Hydroxide (Milk Of Magnesia) 30 ml PO DAILYP PRN PRN Reason: Constipation Ondansetron HCl (Zofran) 4 mg IV Q4-6HP PRN PRN Reason: Nausea And Vomiting Oxycodone HCl (Roxicodone) 20 mg PO Q4-6HP PRN PRN Reason: Pain Last Admin: 09/23/16 22:27 Dose: 20 mg Pantoprazole Sodium (Protonix) 40 mg PO [facility] Last Admin: 09/24/16 07:24 Dose: 40 mg Linaclotide [Linzess (] 290 Mcg Capsule) 1 dose PO DAILY [facility] Last Admin: 09/24/16 08:54 Dose: 1 dose Potassium Chloride (Kdur) 20 meq PO [facility] Last Admin: 09/24/16 07:25 Dose: 20 meq Prednisone (Prednisone) 10 mg PO [facility] Last Admin: 09/24/16 07:25 Dose: 10 mg Quetiapine Fumarate (Seroquel) 12.5 mg PO BID [facility] Last Admin: 09/24/16 08:55 Dose: 12.5 mg Senna/Docusate Sodium (Senna Plus Tablet) 1 tab PO [facility] Last Admin: 09/23/16 20:49 Dose: 1 tab Sodium Biphosphate/Sodium Phosphate (Fleets Adult) 1 dose [place] Q3-4DAYS PRN PRN Reason: Constipation Sodium Chloride (Saline Flush) 10 ml IV UD PRN PRN Reason: meds and labs draws Sodium Chloride (Saline Flush) 10 ml IV Q8 [facility] Last Admin: 09/24/16 07:25 Dose: 10 ml Tiotropium [place] (Spiriva) 36 mcg INH DAILY [facility] Last Admin: 09/24/16 08:48 Dose: 36 mcg Vancomycin HCl (Vancomycin Per Pharmacy) 1 order IV UD [facility] Medical - PN: A/P - Time Spent With Patient Total time spent is greater than 50% in coordination of care (as documented) at patient's floor/unit and/or counseling patient: 15 - 24 minutes (1) Septic shock Status: Acute Assessment and plan: * Diffuse interstitial [id number] antibiotics. DC vancomycin/ cefepime. Continue Levaquin. * Septic shock-fully resolved and off pressors. persistent leukocytosis and 18.6 * Lt foot hematoma/blister-orthopedics recommends against denuding the blister and continue superficial wound care. Nonoperative metatarsal fracture. continue orthopedic boot as recommended by orthopedics * Acute renal failure management nephrology. clinically resolved * Hyperkalemia managed per nephrology.resolved * Hypomagnesemia and low phosphorus- clinically improving with replacement * anxiety disorder on quetiapine * Mental status change secondary to sepsis end organ dysfunction-clinically resolved * History of COPD continue bronchodilators steroids. On home 3 L oxygen * Hypertension - continue diltiazem Plan * dC cefepime and Vanco. Continue Levaquin * physical therapy * wound care * Pre-existing medical condition to continue management as above * SNF transfer once leukocytosis improves Current Visit: Yes Medical - PN: Qual - VTE Deep Vein Thrombosis/Pulmonary Embolism Present on Admission: No
[2016-09-24] MEDS ORDERED: VANCOMYCIN 1,000 MG in 0.9 % SODIUM CHLORIDE 250 ML IV SCH (10:00)
[2016-09-24] MEDS: BISACODYL 10 MG SUPP.RECT PR PRN (12:58)
[2016-09-24] MEDS: IPRATROPIUM/ALBUTEROL 3 ML AMPUL.NEB NEB PRN (16:29)
[2016-09-24] MEDS: SENNOSIDES/DOCUSATE SODIUM 1 TAB TABLET PO SCH (20:07)
[2016-09-24] MEDS: 0.9 % SODIUM CHLORIDE 250 ML IV SCH (23:15)
[2016-09-25] MEDS: oxyCODONE HCL 5 MG TABLET PO PRN ×5 (02:28→22:38)
[2016-09-25 05:39] LABS: Mean Cell Volume 89.8 fL (80.0-100.0); Mean Corpuscular HGB Conc 31.9 g/dL (31.0-36.0); Mean Corpuscular Hemoglobin 28.6 pg (26.0-34.0); Platelet Count 278 K/mcL (140-440); RBC 3.63 M/mcL (4.00-5.20); Red Cell Distribution Width 14.6 % (11.5-14.5)
[2016-09-25] MEDS: 0.9 % SODIUM CHLORIDE 10 ML SYRINGE IV SCH ×3 (05:42→20:29)
[2016-09-25 06:27] LABS: ALT/SGPT 14 U/l (0-40); Albumin 3.2 gm/dL (3.2-5.2); Albumin/Globulin Ratio 1.3 (1.0-2.3); Alkaline Phosphatase 59 U/L (39-117); Bilirubin,Direct < 0.2 mg/dL (0.0-0.3); Blood Urea Nitrogen 16 mg/dl (6-20); Gamma Glutamyl Transpeptidase 26 U/L (5-36); Phosphorous 2.2 mg/dL (2.7-4.5); Uric Acid 5.4 mg/dL (2.5-8.0)
[2016-09-25 07:12] LABS: Anisocytosis 1+ (NONE SEEN); Lymphocytes % 12 % (15-49); Monocytes % (Manual) 11 % (1-9); Platelet Estimate NORMAL (NORMAL); RBC Morphology ABNORM (NORMAL); Segmented Neutrophils % 77 % (38-78)
[2016-09-25] MEDS: PANTOPRAZOLE 40 MG TABLET PO SCH (07:21)
[2016-09-25] MEDS: IPRATROPIUM/ALBUTEROL 3 ML AMPUL.NEB NEB PRN ×4 (08:57→22:43)
[2016-09-25] MEDS ORDERED: VANCOMYCIN 750 MG in 0.9 % SODIUM CHLORIDE 250 ML IV SCH (09:00)
[2016-09-25] MEDS: TIOTROPIUM BROMIDE 18 MCG INHALANT INH SCH (09:04)
[2016-09-25] MEDS: BUDESONIDE 0.5 MG/2 ML AMPUL.NEB NEB SCH (09:04)
[2016-09-25] MEDS: DOCUSATE SODIUM 100 MG CAPSULE PO SCH ×2 (09:14→20:29)
[2016-09-25] MEDS: predniSONE 10 MG TABLET PO SCH (09:14)
[2016-09-25] MEDS: DILTIAZEM 120 MG CAP.XL.24H PO SCH (09:14)
[2016-09-25] MEDS: QUEtiapine 25 MG TABLET PO SCH ×2 (09:14→20:25)
[2016-09-25] MEDS: FLUTICASONE PROPIONATE SPRAY.NAS NS SCH (09:15)
[2016-09-25] MEDS: POTASSIUM CHLORIDE 20 MEQ TABLET PO SCH (09:15)
[2016-09-25] MEDS: clonazePAM 0.5 MG TABLET PO SCH ×2 (09:15→20:25)
[2016-09-25] MEDS: CEFEPIME 2 GM in DEXTROSE 5% IN WATER 50 ML IV SCH (09:16)
[2016-09-25] MEDS: HEPARIN 5,000 UNIT/ML VIAL SQ SCH ×2 (09:16→20:28)
[2016-09-25] MEDS: BUDESONIDE 1 PUFF INHALER INH SCH ×2 (09:17→20:29)
--- NOTE | 2016-09-25 10:42 | Internal Med Progress Note ---
Medical - PN: Subj Patient information: Note initiated : 09/25/16 at 10:40 am Service Date, if different from initiated Date: [] Patient: Shiela Ceballos 61 y/o F admitted on 09/20/16 for Weakness/Renal Failure, Hyperkalemia, Leukocytosis. Chief Complaint: [] Interval history: 09/20- patient admitted critically ill with weakness hyperkalemia,hypotension sepsis and acute renal failure along with mental status change. Recent fall sustaining Left third to fifth metatarsal injury/fracture and subsequent hematoma dorsum of left foot. Patient lives in [facility] along with her . hasn't been able to take care of herself due to increasing weakness and pain. Initial workup in the ER revealed potassium 6.4 along with creatinine 1.7 and white count 26,000. Patient was started on hyperkalemia protocol. 09/21-more lucid and alert and responsive. Creatinine 1.4. Potassium down to 4. White count 27,000. No clear source. surgery/Orthopedics consulted for Lt foot hematoma. on broad antibiotic coverage cefepime,levaquin and vancomycin. No overnight fever chills nausea vomiting. on 3 L oxygen. nephrology recommends systolics around 110. continue vasopressors. History of underlying COPD. Resume home meds except for antihypertensives 09/22- patient doing well. No overnight events. No concerns per staff. Creatinine at 0.8. white count down from 27.5-20.6. potassium at 3.3, phosphorus 1.9 magnesium 1.5 on replacement as per nephrology. orthopedics consulted. Orthopedics of opinion that fracture blister on dorsum of the foot would need wound care. Nonoperative underlying metatarsal fracture. at bedside. Discussed treatment plan. Nephrology on board. clinically resolving. Chest imaging revealed bibasilar pneumonia. continue broad antibiotic coverage including cefepime and Levaquin vancomycin 09/23- white count down to 18.4. Creatinine normalized. Electrolytes improved except for phosphorus of 1.6. Managed per nephrology. clinically improving. Transfer to medical floor. No overnight events including fever chills nausea vomiting. transfer to medical floor. 09/24- improved respiratory status. On 3 L oxygen . however persistent leukocytosis 18.6 despite antibiotic coverage. Obtain cultures from central line. No visible skin lesions/ulceration. No diarrhea/evidence of secondary infectious process. repeat chest imaging. interstitial pneumonitis pattern suggestive of viral/atypicalinfection consistent with low pro-calcitonin. DC cefepime/vancomycin. Extensive cultures negative including blood/wound/blister aspirate. continue physical therapy. Anticipate discharge to SNF once white count downtrending. In light of interaction with antipsychotics Levaquin was discontinued. Patient will continue cefepime for additional 3 days 09/25- patient doing well. White count down to 17.8. no overnight fever chills. On today's oxygen at baseline. Feels a lot better. Tolerating diet and physical therapy. Left foot covered in dressing. Orthopedic shoe. stable biochemical profile. wound cultures negative so far. DC central line and Clemens' s catheter in light of persistent leukocytosis. Continue physical therapy. Anticipate discharge in 24 hours if downtrending leukocytosis - Constitutional Vitals: Vital Signs Temp Pulse Resp BP Pulse Ox 98.7 F 98 H 16 106/72 93 09/25/16 07:41 09/25/16 09:33 09/25/16 09:33 09/25/16 07:41 09/25/16 09:34 Period Temp Pulse Resp BP Sys/[place] Pulse Ox Last 24 Hr 98.1 F-98.7 F 88-105 16-22 96-118/58-82 91-96 Intake and Output 09/24/16 09/25/16 09/25/16 21:59 05:59 13:59 Intake Total 320 / 320 350 / 350 Output Total 100 / 100 325 / 325 Balance 220 / 220 25 / 25 Weight 122 lb 8 oz Intake & Output: Intake & Output 09/24/16 09/25/16 09/25/16 21:59 05:59 13:59 Intake Total 320 / 320 350 / 350 Output Total 100 / 100 325 / 325 Balance 220 / 220 25 / 25 Weight 122 lb 8 oz Intake: IV 50 / 50 Oral 320 / 320 300 / 300 Output: Urine Catheter Amount 100 / 100 325 / 325 Other: Meal Dinner Percent of Meal Consumed 50% Feeding Ability Independent # Bowel Movements 1 General appearance: disheveled, no acute distress Exam: on 3 L oxygen nonlabored breathing nondistended abdomen Left foot and orthopedics shoe covered in dressing Right IJ central line no surrounding redness Foleys draining clear urine Medical - PN: Obj Da - Labs CBC & Chem 7: 09/25/16 04:15 09/25/16 04:15 Labs: Abnormal Lab Results 09/25/16 09/25/16 09/24/16 04:15 04:15 08:08 WBC 17.8 H RBC 3.63 L Hgb 10.4 L Hct 32.6 L RDW 14.6 H Seg Neutrophils % Lymphocytes % 12 L Monocytes % (Manual) 11 H Myelocytes % RBC Morphology Abnorm A Anisocytosis 1+ A Chloride 94 L Carbon Dioxide 32 H Glucose Calcium Phosphorus 2.2 L Lactate Dehydrogenase 320 H Total Protein 5.6 L Albumin Globulin Vancomycin Trough 22.1 H* 09/24/16 09/24/16 09/23/16 04:53 04:53 09:23 WBC 18.5 H RBC 3.68 L Hgb 10.5 L Hct 32.8 L RDW Seg Neutrophils % 82 H Lymphocytes % 7 L Monocytes % (Manual) Myelocytes % 1 H RBC Morphology Anisocytosis Chloride 94 L Carbon Dioxide 34 H Glucose Calcium 8.2 L Phosphorus 2.1 L Lactate Dehydrogenase 325 H Total Protein 5.6 L Albumin Globulin Vancomycin Trough 18.1 H 09/23/16 09/23/16 09/22/16 04:03 04:03 15:48 WBC 18.3 H RBC 3.43 L Hgb 9.8 L Hct 30.5 L RDW Seg Neutrophils % Lymphocytes % 8 L Monocytes % (Manual) 15 H Myelocytes % RBC Morphology Anisocytosis Chloride 94 L 94 L Carbon Dioxide 31 H Glucose 64 L Calcium 7.9 L 7.7 L Phosphorus 1.6 L Lactate Dehydrogenase 311 H Total Protein 5.0 L 5.2 L Albumin 2.7 L Globulin 2.0 L Vancomycin Trough Meds: Medications Acetaminophen (Tylenol) 650 mg PO Q4-6HP PRN PRN Reason: PAIN/FEVER > 101 Albuterol Sulfate (Ventolin) 1 puff INH Q6HP PRN PRN Reason: Shortness Of Breath Last Admin: 09/24/16 08:48 Dose: 1 puff Albuterol/Ipratropium (Duoneb) 3 ml NEB Q4HP PRN PRN Reason: Shortness Of Breath Last Admin: 09/25/16 08:57 Dose: 3 ml Bisacodyl (Dulcolax) 10 mg NM Q2-3DAYS PRN PRN Reason: Constipation Last Admin: 09/24/16 12:58 Dose: 10 mg Budesonide (Pulmicort) 2 puff INH BID [facility] Last Admin: 09/25/16 09:17 Dose: Not Given Budesonide (Pulmicort) 0.5 mg NEB DAILY [facility] Last Admin: 09/25/16 09:04 Dose: 0.5 mg Clonazepam (Klonopin) 0.5 - 1 mg PO BID [facility] Last Admin: 09/25/16 09:15 Dose: 0.5 mg Diltiazem HCl (Cardizem Cd) 120 mg PO DAILY [facility] Last Admin: 09/25/16 09:14 Dose: 120 mg Docusate Sodium (Colace) 100 mg PO BID [facility] Last Admin: 09/25/16 09:14 Dose: 100 mg Fluticasone Propionate (Flonase) 2 spray NS DAILY [facility] Last Admin: 09/25/16 09:15 Dose: 2 spray Heparin Sodium (Porcine) (Heparin) 5,000 unit SQ Q12 [facility] Last Admin: 09/25/16 09:16 Dose: 5,000 unit Cefepime HCl 2 gm/ Dextrose 50 mls @ 100 mls/hr IV DAILY [facility] Last Admin: 09/25/16 09:16 Dose: 100 mls/hr Magnesium Hydroxide (Milk Of Magnesia) 30 ml PO DAILYP PRN PRN Reason: Constipation Ondansetron HCl (Zofran) 4 mg IV Q4-6HP PRN PRN Reason: Nausea And Vomiting Oxycodone HCl (Roxicodone) 20 mg PO Q4-6HP PRN PRN Reason: Pain Last Admin: 09/25/16 07:24 Dose: 20 mg [facility]op[facility] Admin: 09/25/16 07:21 Dose: 40 mg Linaclotide [Linzess (] 290 Mcg Capsule) 1 dose PO DAILY [facility] Last Admin: 09/25/16 09:16 Dose: 1 dose Potassium Chloride (Kdur) 20 meq PO [facility] Last Admin: 09/25/16 09:15 Dose: 20 meq Prednisone [facility]Pred[facility]one) [facility] Last Admin: 09/25/16 09:14 Dose: 10 mg Quetiapine Fumarate (Seroquel) 12.5 mg PO BID [facility] Last Admin: 09/25/16 09:14 Dose: 12.5 mg Senna/Docusate Sodium (Senna Plus Tablet) 1 tab PO HS [facility] Last Admin: 09/24/16 20:07 Dose: 1 tab Sodium Biphosphate/Sodium Phosphate (Fleets Adult) 1 dose NM Q3-4DAYS PRN PRN Reason: Constipation Sodium Chloride (Saline Flush) 10 ml IV UD PRN PRN Reason: meds and labs draws Sodium Chloride (Saline Flush) 10 ml IV Q8 [facility] Last Admin: 09/25/16 05:42 Dose: 10 ml Tiotropium Cool (Spiriva) 36 mcg INH DAILY [facility] Last Admin: 09/25/16 09:04 Dose: 18 mcg Medical - PN: A/P - Time Spent With Patient Total time spent is greater than 50% in coordination of care (as documented) at patient's floor/unit and/or counseling patient: 25 - 35 minutes (1) Septic shock Status: Acute Assessment and plan: * Diffuse interstitial pneumonia- continue cefepime. DC Levaquin vancomycin. Clinical improvement noted * Septic shock-fully resolved and off pressors. improving leukocytosis 17.8. DC central line/Clemens's catheter * Lt foot hematoma/blister-orthopedics recommends against denuding the blister and continue superficial wound care. Nonoperative metatarsal fracture. Continue orthopedic boot as recommended by orthopedics * Acute renal failure management nephrology. clinically resolved * Hyperkalemia managed per nephrology.resolved * Hypomagnesemia and low phosphorus- continue replacement * Anxiety disorder on quetiapine * Mental status change secondary to sepsis end organ dysfunction-clinically resolved * History of COPD continue bronchodilators steroids. On home 3 L oxygen * Hypertension - continue diltiazem Plan * antibiotics for additional 3 days * DC central line/Foleys catheter * physical therapy * wound care/orthopedic shoe * Pre-existing medical condition to continue management as above * SNF transfer likely in 24-48 hours Current Visit: Yes Medical - PN: Qual - VTE Deep Vein Thrombosis/Pulmonary Embolism Present on Admission: No
[2016-09-25] MEDS: BISACODYL 10 MG SUPP.RECT PR PRN (11:10)
[2016-09-25] MEDS: SENNOSIDES/DOCUSATE SODIUM 1 TAB TABLET PO SCH (20:29)
[2016-09-26] MEDS: oxyCODONE HCL 5 MG TABLET PO PRN ×3 (03:13→12:55)
[2016-09-26] MEDS: IPRATROPIUM/ALBUTEROL 3 ML AMPUL.NEB NEB PRN ×3 (03:18→13:05)
[2016-09-26] MEDS: POTASSIUM CHLORIDE 20 MEQ TABLET PO SCH (08:10)
[2016-09-26] MEDS: HEPARIN 5,000 UNIT/ML VIAL SQ SCH (08:19)
[2016-09-26] MEDS: clonazePAM 0.5 MG TABLET PO SCH (08:20)
[2016-09-26] MEDS: DILTIAZEM 120 MG CAP.XL.24H PO SCH (08:21)
[2016-09-26] MEDS: predniSONE 10 MG TABLET PO SCH (08:22)
[2016-09-26] MEDS: PANTOPRAZOLE 40 MG TABLET PO SCH (08:22)
[2016-09-26] MEDS: FLUTICASONE PROPIONATE SPRAY.NAS NS SCH (08:30)
[2016-09-26] MEDS: 0.9 % SODIUM CHLORIDE 10 ML SYRINGE IV SCH (08:32)
[2016-09-26] MEDS: BUDESONIDE 1 PUFF INHALER INH SCH (08:33)
[2016-09-26] MEDS: TIOTROPIUM BROMIDE 18 MCG INHALANT INH SCH (08:34)
[2016-09-26] MEDS: DOCUSATE SODIUM 100 MG CAPSULE PO SCH (08:37)
[2016-09-26] MEDS: BUDESONIDE 0.5 MG/2 ML AMPUL.NEB NEB SCH (08:48)
[2016-09-26] MEDS: QUEtiapine 25 MG TABLET PO SCH (09:38)
[2016-09-26] MEDS: CEFEPIME 2 GM in DEXTROSE 5% IN WATER 50 ML IV SCH (09:38)
[2016-09-26 11:13] LABS: Basophils # (Auto) 0 K/mcL (0.0-0.3); Basophils % (Auto) 0.1 % (0.0-2.0); Eosinophils # (Auto) 0.3 K/mcL (0.0-0.7); Eosinophils % (Auto) 2.1 % (0.0-7.0); Granulocytes % (Auto) 71.6 % (38.0-78.0); Lymphocytes # (Auto) 2.8 K/mcL (1.5-4.8); Lymphocytes % (Auto) 17.4 % (15.5-49.0); Mean Cell Volume 90.4 fL (80.0-100.0); Mean Corpuscular HGB Conc 32.2 g/dL (31.0-36.0); Mean Corpuscular Hemoglobin 29.1 pg (26.0-34.0); Monocytes # (Auto) 1.4 K/mcL (0.1-0.9); Monocytes % (Auto) 8.8 % (1.0-12.0); Platelet Count 282 K/mcL (140-440); RBC 3.71 M/mcL (4.00-5.20); Red Cell Distribution Width 14.5 % (11.5-14.5)
--- NOTE | 2016-09-26 11:26 | Discharge Summary ---
Medical - DS: Prov Patient information: Note initiated : 09/26/16 at 11:22 am Service Date, if different from initiated Date: [] Patient: Shiela Ceballos 61 y/o F admitted on 09/20/16 for Weakness/Renal Failure, Hyperkalemia, Leukocytosis. Chief Complaint: [] Date of admission: 09/20/16 22:35 Discharge date: 09/26/16 Primary care physician: [f_Reg Prim Care Provider] Consults: 09/21/16 12:24 Consult to Physician [CONS] Routine Comment: Consulting Provider: [facility] Reason For Exam: Physician to Consult 09/21/16 12:37 Consult to Physician [CONS] Routine Comment: rt foot hematoma ? infection Consulting Provider: Wendy Carey Reason For Exam: Physician to Consult 09/21/16 12:39 Consult to Physician [CONS] Routine Comment: ? osteomylitis Consulting Provider: Dmitri Dominguez Reason For Exam: Physician to Consult 09/24/16 10:00 Consult to Physician [CONS] Routine Comment: Consulting Provider: [facility] Reason For Exam: Physician to Consult Medical - DS: Meds - Discharge Medications Prescriptions: Cefepime [Maxipime] 1 gm IV Q24H #2 vial Active and Home Medications: Home Medications Albuterol Sulfate [Proair Hfa] 2 puff INH Q4HP PRN 09/20/16 [History Confirmed 09/21/16 Last Taken Unknown] Azithromycin [Zithromax] 250 mg PO DAILY 09/20/16 [History Confirmed 09/20/16 Last Taken Unknown] Budesonide [Pulmicort] 0.5 mg NEB BID 09/20/16 [History Confirmed 09/21/16 Last Taken Unknown] Diltiazem [Cardizem Cd] 120 mg PO DAILY 09/20/16 [History Confirmed 09/20/16 Last Taken Unknown] Docusate Sodium [Stool Softener] 250 mg PO DAILY 09/20/16 [History Confirmed Last Taken Unknown] Fluconazole [Diflucan] 100 mg PO DAILY 09/20/16 [History Confirmed 09/20/16 Last Taken Unknown] Fluticasone Propionate [Flonase] 2 spray NS DAILY 09/20/16 [History Confirmed Last Taken Unknown] Furosemide [Lasix] 40 mg PO QNOON 09/20/16 [History Confirmed 09/20/16 Last Taken Unknown] Furosemide [Lasix] 80 mg PO DAILY 09/20/16 [History Confirmed 09/20/16 Last Taken Unknown] Ipratropium/Albuterol [Duoneb] 3 ml NEB Q4HP PRN 09/20/16 [History Confirmed Last Taken Unknown] Linaclotide [Linzess] 290 mcg PO DAILY 09/20/16 [History Confirmed 09/20/16 Last Taken Unknown] Pantoprazole Sodium 40 mg PO DAILY 09/20/16 [History Confirmed 09/20/16 Last Taken Unknown] Potassium Chloride [Kdur] 20 meq PO DAILY 09/20/16 [History Confirmed 09/20/16 Last Taken Unknown] Ranitidine HCl [Acid Gear Machine Operator General] 150 mg PO DAILY 09/20/16 [History Confirmed Last Taken Unknown] Spironolactone [Aldactone] 12.5 mg PO DAILY 09/20/16 [History Confirmed Last Taken Unknown] Tiotropium [place] [Spiriva Respimat] 2 puff INH DAILY 09/20/16 [History Confirmed 09/20/16 Last Taken Unknown] clonazePAM [Clonazepam] 0.5 - 1 mg PO BID 09/20/16 [History Confirmed 09/20/16 Last Taken Unknown] predniSONE [Prednisone] 10 mg PO DAILY 09/20/16 [History Confirmed 09/20/16 Last Taken Unknown] QUEtiapine [SEROquel] 12.5 mg PO BID 09/21/16 [History Confirmed 09/21/16 Last Taken Unknown] oxyCODONE HCL [Roxicodone] 20 mg PO Q4-6HP PRN 09/21/16 [History Confirmed 09/21 Last Taken Unknown] Medical - DS: Hosp Hospital course: DISCHARGE DIAGNOSIS Diffuse interstitial pneumonia- continues antibiotics for additional 2 days. Clinically resolved * Septic shock-fully resolved and off pressors. white count down to 16 from 19. Continue antibiotics for additional 2 days and posthospitalization rehabilitation or SNF. * Lt metatarsal fracture [id number] recommends against denuding overlying blister and continue superficial wound care. follow-up with wound care clinic and continue wound care recommendations. Continue orthopedics recommendations for fracture management * Acute renal failure management nephrology. clinically resolved * Hyperkalemia managed per nephrology. potassium at 5.1. Spironolactone discontinued. recommend repeat BMP in 3 days * Hypomagnesemia and low phosphorus- clinically improved with replacement * Anxiety disorder on quetiapine * Mental status change secondary to sepsis end organ dysfunction-clinically resolved * History of COPD continue bronchodilators steroids. On home 3 L oxygen * Hypertension - continue diltiazem * severe deconditioning- Continue aggressive physical therapy at [facility] Mr. Ceballos is a 61 year old female 09/20- patient admitted critically ill with weakness hyperkalemia,hypotension sepsis and acute renal failure along with mental status change. Recent fall sustaining Left third to fifth metatarsal injury/fracture and subsequent hematoma dorsum of left foot. Patient lives in [facility] along with her . hasn't been able to take care of herself due to increasing weakness and pain. Initial workup in the ER revealed potassium 6.4 along with creatinine 1.7 and white count 26,000. Patient was started on hyperkalemia protocol. 09/21-more lucid and alert and responsive. Creatinine 1.4. Potassium down to 4. White count 27,000. No clear source. surgery/Orthopedics consulted for Lt foot hematoma. on broad antibiotic coverage cefepime,levaquin and vancomycin. No overnight fever chills nausea vomiting. on 3 L oxygen. nephrology recommends systolics around 110. continue vasopressors. History of underlying COPD. Resume home meds except for antihypertensives 09/22- patient doing well. No overnight events. No concerns per staff. Creatinine at 0.8. white count down from 27.5-20.6. potassium at 3.3, phosphorus 1.9 magnesium 1.5 on replacement as per nephrology. orthopedics consulted. Orthopedics of opinion that fracture blister on dorsum of the foot would need wound care. Nonoperative underlying metatarsal fracture. at bedside. Discussed treatment plan. Nephrology on board. clinically resolving. Chest imaging revealed bibasilar pneumonia. continue broad antibiotic coverage including cefepime and Levaquin vancomycin 09/23- white count down to 18.4. Creatinine normalized. Electrolytes improved except for phosphorus of 1.6. Managed per nephrology. clinically improving. Transfer to medical floor. No overnight events including fever chills nausea vomiting. transfer to medical floor. 09/24- improved respiratory status. On 3 L oxygen . however persistent leukocytosis 18.6 despite antibiotic coverage. Obtain cultures from central line. No visible skin lesions/ulceration. No diarrhea/evidence of secondary infectious process. repeat chest imaging. interstitial pneumonitis pattern suggestive of viral/atypicalinfection consistent with low pro-calcitonin. DC cefepime/vancomycin. Extensive cultures negative including blood/wound/blister aspirate. continue physical therapy. Anticipate discharge to SNF once white count downtrending. In light of interaction with antipsychotics Levaquin was discontinued. Patient will continue cefepime for additional 3 days 09/25- patient doing well. White count down to 17.8. no overnight fever chills. On today's oxygen at baseline. Feels a lot better. Tolerating diet and physical therapy. Left foot covered in dressing. Orthopedic shoe. stable biochemical profile. wound cultures negative so far. DC central line and Clemens' s catheter in light of persistent leukocytosis. Continue physical therapy. Anticipate discharge in 24 hours if downtrending leukocytosis 09/26 patient doing well. No overnight events. Feels at baseline. On 3 L oygen. No fever chills nausea vomiting CP/SOB. Wound care ongoing. Tolerating diet. Discharge to SNF with detailed instructions as below. Continue outpatient follow-up with orthopedics and wound care. Discharge diagnosis: . - Time Spent with Patient Total time spent providing and/or coordinating discharge services: Greater than 30 minutes Medical - DS: Exam - Constitutional Vitals: Vital Signs Temp Pulse Pulse Pulse Resp BP BP 09/26/16 08:49 90 18 09/26/16 07:47 87 09/26/16 07:45 98.4 F 87 16 115/67 09/26/16 03:12 98.4 F 102 H 14 104/70 09/25/16 23:50 98.4 F 106 H 14 116/81 09/25/16 22:51 103 H 14 09/25/16 20:00 98.8 F 89 14 115/73 09/25/16 18:21 98 H 16 09/25/16 18:15 09/25/16 18:14 09/25/16 16:00 98.4 F 101 H 16 100/72 09/25/16 13:57 88 16 09/25/16 12:45 98.7 F 91 H 16 109/72 Pulse Ox 09/26/16 08:49 95 09/26/16 07:47 95 09/26/16 07:45 95 09/26/16 03:12 92 09/25/16 23:50 95 09/25/16 22:51 09/25/16 20:00 91 09/25/16 18:21 09/25/16 18:15 94 09/25/16 18:14 94 09/25/16 16:00 94 09/25/16 13:57 09/25/16 12:45 95 Intake and Output 09/25/16 09/26/16 09/26/16 21:59 05:59 13:59 Intake Total 120 / 120 150 / 150 400 / 400 Output Total 150 / 150 350 / 350 Balance -30 / -30 -200 / -200 400 / 400 Intake: Oral 120 / 120 150 / 150 400 / 400 Output: Void Amount 150 / 150 350 / 350 Other: Meal Dinner Breakfast Percent of Meal Consumed 75% 50% Feeding Ability Assist with Tray Set Up Assist with Tray Set Up Weight 122 lb 8 oz Medical - DS: Data Labs on day of discharge: Labs from last 24 hours 09/26/16 09/26/16 08:24 08:24 WBC 16.0 H RBC 3.71 L Hgb 10.8 L Hct 33.6 L MCV 90.4 MCH 29.1 MCHC 32.2 RDW 14.5 Plt Count 282 MPV 8.4 Gran % 71.6 Lymph % (Auto) 17.4 Dewitt % (Auto) 8.8 Eos % (Auto) 2.1 Baso % (Auto) 0.1 Gran # 11.4 H Lymph # 2.8 Dewitt # 1.4 H Eos # 0.3 Baso # 0 Sodium Pending Potassium Pending Chloride Pending Carbon Dioxide Pending Anion Gap Pending BUN Pending Creatinine Pending GFR Calculation Pending Glucose Pending Calcium Pending Medical - DS: A/P - Patient/Caregiver Discharge Instructions Activity: as per physical therapy Diet: Renal Additional Instructions: Follow-up PCP in 5 days follow-up with wound care clinic as directed along with dressing and wound care recommendations per Dr. Mooney F/u orthopedics in 2 weeks for Lt 3-5 metatarsal fracture Weightbearing and ambulation as per orthopedic recommendations I recommend physician to check CBC BMP UA as a posthospital follow-up in 3 to 5 days hold the spironolactone until repeat potassium check (since patient was admitted with hyperkalemia). Reinitiation of spironolactone at the discretion of primary care physician Antibiotics for 2 days-IV cefepime oxygen @ 3 L Continue aggressive bowel regimen to prevent constipation Continue fall precautions daily weight monitoring Continue aggressive PT OT /wound care at SNF All meals on chair sitting upright at 90 degrees to prevent aspiration Return to ER if worsening fever chills shortness of breath, diarrhea, bleeding Review risk and side effect profile of medications including antibiotics. Side effect may include mild to severe reaction including rash, diarrhea, cdiff and even which can be prevented by close follow-up with PCP and monitoring for side effects Continue diet and activity as advised Discussed importance of medication adherence Please review medication list with patient prior to discharge Please schedule follow-up with PCP/Providers prior to discharge and provide printouts Portions of this chart may have been created with [employer] voice recognition software. Occasional wrong-word or ?sound-like? substitutions may have occurred due to the inherent limitations of voice recognition software. Please read the chart carefully and recognize, using context, where the substitutions have occurred. CC- PCP Prescriptions: Cefepime [Maxipime] 1 gm IV Q24H #2 vial Other Amb Orders: Wound Care Instructions Location: Determined By Patient - Follow up Plan Follow up with: Mal Mooney MD [Physician] - (please call/schedule appointment. ) Dmitri Dominguez MD [Physician] - (please call/schedule follow up appointment.) Rosie Bledsoe ARNP [Primary Care Provider] - (Please call/schedule follow up appointment.) Disposition: [facility] Prognosis: Fair Rehab Potential: Fair I certify that the patient requires SNF services: Yes Overall status at discharge: patient is progressing back to baseline Medical - DS: Qual - VTE Deep Vein Thrombosis/Pulmonary Embolism Present on Admission: No
[2016-09-26 11:29] LABS: Blood Urea Nitrogen 15 mg/dl (6-20)
[2016-09-26 12:42] LABS: Blood Urea Nitrogen 17 mg/dl (6-20)
== END 2016-09-26 13:45 | DRG 871 ==
LOC: ED 17:52 → ICU 22:35 → MEDSUR 09-23 17:38
PROVIDERS: ADMIT Internal Medicine; ATTEND Internal Medicine